=== PATIENT | female | born 1990 | race Caucasian/White ===

== ENCOUNTER → 2016-09-11 | Outpatient (CLI) | payer OTHER ==
[2016-09-11 18:52] LABS: FREE T4 1.13 NG/DL (0.76-1.46)
[2016-09-11 18:52] LABS: MEAN CORPUSCULAR HEMOGLOBIN 29.9 pg (27.0-33.0); MEAN CORPUSCULAR HGB CONC 32.7 g/dl (32.0-36.5); MEAN CORPUSCULAR VOLUME 91.4 fl (80.0-96.0); PLATELET COUNT, AUTOMATED 222 k/mm3 (150-450); RED CELL DISTRIBUTION WIDTH 12.3 % (11.5-14.5); WHITE BLOOD COUNT 6.8 K/mm3 (4.0-10.0)
[2016-09-11 18:53] LABS: DIFF SLIDE NUMBER 223
== END ==
LOC: M SMT 14:26
PROVIDERS: ATTEND Specialist
DX: Z34.82 Encounter for supervision of other normal pregnancy, second trimester (principal)

== ENCOUNTER → 2016-10-27 | Outpatient (REF) | payer OTHER ==
[2016-10-27 17:16] LABS: FREE T4 1.14 NG/DL (0.76-1.46)
== END ==
LOC: M LAB REF 10-26 15:58 → M LABDRWAD 15:58 → M LAB REF 15:58
PROVIDERS: ATTEND Advanced Practice Midwife
DX: Z34.83 Encounter for supervision of other normal pregnancy, third trimester (principal)

== ENCOUNTER → 2016-11-09 | Outpatient (REF) | payer OTHER | LOC: M LAB REF 17:30 | PROVIDERS: ATTEND Obstetrics & Gynecology | DX: Z34.83 Encounter for supervision of other normal pregnancy, third trimester (principal) ==

== ENCOUNTER 2016-12-03 19:26 | Inpatient (IN) | payer OTHER ==
[~2016-12-03] VITALS: Ht 157.5 cm; Wt 78.0 kg
[2016-12-03 19:39] VITALS: BP 136/100
[2016-12-03] MEDS ORDERED: LR 1,000 ML IV SCH (19:41)
[2016-12-03] MEDS ORDERED: LACTATED RINGER'S 1000 ML IV STA (19:41)
[2016-12-03 20:27] VITALS: BP 141/103
[2016-12-03] MEDS ORDERED: miSOPROStol 50 MCG 1/2 TAB (S0191) SL ONE (20:30)
[2016-12-03 20:55] LABS: MEAN CORPUSCULAR HEMOGLOBIN 30.2 pg (27.0-33.0); MEAN CORPUSCULAR HGB CONC 33.5 g/dl (32.0-36.5); MEAN CORPUSCULAR VOLUME 90.2 fl (80.0-96.0); RED CELL DISTRIBUTION WIDTH 13.8 % (11.5-14.5); WHITE BLOOD COUNT 11.9 K/mm3 (4.0-10.0)
[2016-12-03 20:56] VITALS: BP 158/101
[2016-12-03 21:25] LABS: ALBUMIN 2.8 GM/DL (3.2-5.2); ALBUMIN/GLOBULIN RATIO 0.72 (1.00-1.93); ALKALINE PHOSPHATASE 127 U/L (45-117); ALT/SGPT 24 U/L (12-78); ANION GAP 12 MEQ/L (8-16); AST/SGOT 29 U/L (15-37); BILIRUBIN,TOTAL 0.2 MG/DL (0.2-1.0); BLOOD UREA NITROGEN 10 MG/DL (7-18); CALCIUM LEVEL 8.9 MG/DL (8.5-10.1); CARBON DIOXIDE LEVEL 22 MEQ/L (21-32); CHLORIDE LEVEL 104 MEQ/L (98-107); CREATININE FOR GFR 0.68 MG/DL (0.55-1.02); GLOMERULAR FILTRATION RATE > 60.0 (>60); GLUCOSE, FASTING 96 MG/DL (70-105); POTASSIUM SERUM 4.1 MEQ/L (3.5-5.1); SODIUM LEVEL 138 MEQ/L (136-145); TOTAL PROTEIN 6.7 GM/DL (6.4-8.2); URIC ACID 6.6 MG/DL (2.6-6.0)
[2016-12-03 21:54] VITALS: BP 150/94
[2016-12-03] MEDS: ACETAMINOPHEN 500 MG TAB PO PRN (22:41)
[2016-12-03 22:43] VITALS: BP 123/77
[2016-12-03 23:58] VITALS: BP 117/72
[2016-12-04] VITALS (11 sets, daily range): BP systolic 115–160; BP diastolic 70–105
[2016-12-04] MEDS ORDERED: miSOPROStol 25 MCG 1/4 TAB (S0191) As Ordered ONE (02:11)
[2016-12-04] MEDS ORDERED: miSOPROStol 25 MCG 1/4 TAB (S0191) PV ONE (02:15)
[2016-12-04] MEDS: ACETAMINOPHEN 500 MG TAB PO PRN ×2 (04:52→10:08)
[2016-12-04] MEDS ORDERED: ACET50TA PO (06:44)
[2016-12-04] MEDS ORDERED: PRENTAB9 PO (06:44)
[2016-12-04] MEDS ORDERED: BUTORPHANOL 2 MG/ML INJ (J0595) IV ONE (07:45)
[2016-12-04] MEDS ORDERED: PROMETHAZINE INJ 25 MG/ML VIAL (J2550) IV ONE (07:45)
[2016-12-04] MEDS: miSOPROStol 50 MCG 1/2 TAB (S0191) PO SCH ×2 (08:01→12:00)
[2016-12-04] MEDS ORDERED: FENTANYL 2MCG/ML ROPIVACAINE 0.2% IN 0.9% NACL 200ML IVBAG As Ordered ONE (16:28)
[2016-12-04] MEDS ORDERED: OXYTOCIN DRIP 30 UNITS in APPROPRIATE DILUENT 1 EA IV SCH (16:30)
[2016-12-04 16:55] LABS: MEAN CORPUSCULAR HEMOGLOBIN 29.9 pg (27.0-33.0); MEAN CORPUSCULAR HGB CONC 33.3 g/dl (32.0-36.5); MEAN CORPUSCULAR VOLUME 89.8 fl (80.0-96.0); RED CELL DISTRIBUTION WIDTH 13.8 % (11.5-14.5)
[2016-12-04 20:33] LABS: CORD GAS ABE V -7.5; CORD GAS O2 SAT V 38.6 %; CORD GAS PCO2 V 47.4 mmHg; CORD GAS PH V 7.243 UNITS; CORD GAS PO2 V 19.6 mmHg; CORD GAS SBC V 17.2 MEQ/L; CORD GAS TCO2 V 21.4 MEQ/L
[2016-12-04 20:36] LABS: CORD GAS HCO3 A 21.3 MEQ/L; CORD GAS O2 SAT A < 15.0 %; CORD GAS PH A 7.095 UNITS; CORD GAS PO2 A 10.1 mmHg; CORD GAS TCO2 A 23.5 MEQ/L
[2016-12-04] MEDS ORDERED: DIBUCAINE 1% OINTMENT 30GM TOP PRN (20:45)
[2016-12-04] MEDS ORDERED: RHOGAM 300 MCG (1500 IU) INJ (J2790) IM SCH (20:45)
[2016-12-04] MEDS ORDERED: MEASLES,MUMPS,RUBELLA VACCINE INJ (MMR-II) (90707) SC SCH (20:45)
[2016-12-04] MEDS ORDERED: METHYLERGONOVINE MALEATE 0.2 MG TAB PO PRN (20:45)
[2016-12-04] MEDS ORDERED: LIDOCAINE 1% MDV INJ 50 ML VIAL INFIL ONE (20:45)
[2016-12-04] MEDS ORDERED: OXYTOCIN DRIP 30 UNITS in APPROPRIATE DILUENT 1 EA IV ONE (20:45)
[2016-12-04] MEDS ORDERED: ACETAMINOPHEN 500 MG TAB PO PRN (20:45)
[2016-12-04] MEDS ORDERED: ONDANSETRON 4MG/2ML VIAL (J2405) IV PRN (20:45)
[2016-12-04] MEDS ORDERED: DOCUSATE SODIUM 100 MG CAP PO PRN (20:45)
--- NOTE | 2016-12-04 20:47 | DN ---
DATE: 12/04/2016 PREDELIVERY DIAGNOSIS: 39 weeks, gestational hypertension. POSTDELIVERY DIAGNOSIS: Delivered. PROCEDURE: Spontaneous vaginal delivery. FIRE CHIEF DEPUTY: Dr. Amilcar Menard. ANESTHESIA: Epidural. ESTIMATED BLOOD LOSS: 300 ML. FINDINGS: 6 pound 14 ounce female , scores 8 and 9. DELIVERY SUMMARY: After a 36-minute second stage, the patient spontaneously delivered a 6 pound 14 ounce female , scores 8 and 9 under epidural anesthesia. There was no nuchal cord. The shoulders delivered spontaneously with ease. The infant was handed directly to the mother. Cord was doubly clamped and cut. Placenta delivered spontaneously and appeared to be intact. The patient received intravenous (IV) Pitocin immediately after delivery of the placenta. A second-degree perineal laceration was repaired under local anesthesia with 2-0 chromic in the usual fashion. Sponge, needle counts are correct.
[2016-12-04] MEDS: IBUPROFEN 800 MG TAB PO PRN (21:33)
[2016-12-05] MEDS: LEVOTHYROXINE 0.137 MG TAB (137MCG) PO SCH (05:34)
[2016-12-05] MEDS: IBUPROFEN 800 MG TAB PO PRN ×2 (05:34→14:34)
[2016-12-05 05:59] VITALS: BP 135/79
[2016-12-05] MEDS: PRENATAL VITAMIN TAB PO SCH (08:49)
[2016-12-05 17:50] VITALS: BP 167/85
[2016-12-05 18:42] VITALS: BP 143/96
[2016-12-06] MEDS: LEVOTHYROXINE 0.137 MG TAB (137MCG) PO SCH (06:00)
[2016-12-06] MEDS: IBUPROFEN 800 MG TAB PO PRN (06:05)
[2016-12-06 06:06] VITALS: BP 135/85
[2016-12-06] MEDS ORDERED: LEVO137T2 PO (08:37)
[2016-12-06] MEDS ORDERED: IBUP-1114 PO (08:39)
[2016-12-06] MEDS: PRENATAL VITAMIN TAB PO SCH (09:35)
== END 2016-12-06 11:00 | disposition home or self-care (01) | DRG 560 ==
LOC: M LDI 19:26 → M OBS 12-04 21:54
PROVIDERS: ADMIT Obstetrics & Gynecology; ATTEND Specialist
PROC: 3E0134Z Introduction of Serum, Toxoid and Vaccine into Subcutaneous Tissue, Percutaneous Approach (ICD-10-PCS; 2016-12-03)
PROC: 10E0XZZ Delivery of Products of Conception, External Approach (ICD-10-PCS; principal; 2016-12-04)
PROC: 0KQM0ZZ Repair Perineum Muscle, Open Approach (ICD-10-PCS; 2016-12-04)
DX: O13.4 Gestational [pregnancy-induced] hypertension without significant proteinuria, complicating childbirth (principal); Z3A.39 39 weeks gestation of pregnancy; O99.282 Endocrine, nutritional and metabolic diseases complicating pregnancy, second trimester; E03.9 Hypothyroidism, unspecified; O70.1 Second degree perineal laceration during delivery; Z37.0 Single live birth

== ENCOUNTER → 2017-03-11 | Outpatient (REF) | payer OTHER ==
[~2017-03-11] MED LIST: ACET50TA PO; IBUP-1114 PO; LEVO137T2 PO; PRENTAB9 PO
== END ==
LOC: M LAB REF 16:58
PROVIDERS: ATTEND Advanced Practice Midwife
DX: Z12.4 Encounter for screening for malignant neoplasm of cervix (principal)

== ENCOUNTER → 2017-03-13 | Outpatient (CLI) | payer OTHER ==
[2017-03-13 13:54] LABS: THYROXINE (T4) 11.7 UG/DL (4.5-12.0)
== END ==
LOC: M LAB 13:02
PROVIDERS: ATTEND Advanced Practice Midwife
DX: E03.9 Hypothyroidism, unspecified (principal)

== ENCOUNTER → 2017-08-13 | Outpatient (REF) | payer OTHER ==
[2017-08-13 16:23] LABS: HCG, SERUM QUANTITATIVE 288 MIU/ML
== END ==
LOC: M LAB REF 14:53
DX: Z02.1 Encounter for pre-employment examination (principal)

== ENCOUNTER → 2017-09-24 | Outpatient (CLI) | payer OTHER ==
[2017-09-24 18:30] LABS: BASO % 0.5 % (0.0-1.0); EOS # 0.5 10^3/uL (0.0-0.50); EOS % 5.8 % (0.0-3.0); HEMATOCRIT 39.7 % (36.0-47.0); IMMATURE GRANULOCYTE % 0.5 % (0-3.0); LYMPH # 2.1 10^3/uL (1.5-6.5); LYMPH % 23.4 % (24.0-44.0); MEAN CORPUSCULAR HEMOGLOBIN 29.1 pg (27.0-33.0); MEAN CORPUSCULAR HGB CONC 32.7 g/dl (32.0-36.5); MONO # 0.6 10^3/uL (0.0-0.8); MONO % 6.8 % (0.0-5.0); NEUTROPHILS # 5.5 10^3/uL (1.8-7.7); PLATELET COUNT, AUTOMATED 287 10^3/uL (150-450); RED BLOOD COUNT 4.46 10^6/uL (4.00-5.40); RED CELL DISTRIBUTION WIDTH 13.2 % (11.5-14.5); WHITE BLOOD COUNT 8.8 10^3/uL (4.0-10.0)
[2017-09-24 18:41] LABS: FREE T4 1.23 NG/DL (0.76-1.46)
[2017-09-24 20:50] LABS: CHLAMYDIA DNA AMPLIFICATION NEGATIVE (NEGATIVE); GC DNA AMPLIFICATION NEGATIVE (NEGATIVE)
[2017-09-27 10:33] LABS: RUBELLA IgG QUALITATIVE IMMUNE (IMMUNE)
[2017-09-27 10:39] LABS: HBsAg Prenatal NEGATIVE (NEGATIVE)
[2017-09-27 11:02] LABS: HIV 1&2 SCREEN CENTAUR NEGATIVE (NEGATIVE)
== END ==
LOC: M SMT 12:00
DX: Z34.81 Encounter for supervision of other normal pregnancy, first trimester (principal); Z3A.09 9 weeks gestation of pregnancy

== ENCOUNTER → 2017-10-18 | Outpatient (REF) | payer OTHER | LOC: M LAB REF 12:50 | DX: Z34.82 Encounter for supervision of other normal pregnancy, second trimester (principal) ==

== ENCOUNTER → 2017-11-12 | Outpatient (CLI) | payer OTHER | LOC: M RAD 17:04 | DX: Z34.82 Encounter for supervision of other normal pregnancy, second trimester (principal) | CPT/HCPCS: 76811 ==

== ENCOUNTER → 2017-12-07 | Outpatient (REF) | payer OTHER | LOC: M LAB REF 13:14 | DX: Z34.82 Encounter for supervision of other normal pregnancy, second trimester (principal) ==

== ENCOUNTER → 2018-01-13 | Outpatient (CLI) | payer OTHER ==
[2018-01-13 18:00] LABS: BASO % 0.3 % (0.0-1.0); EOS # 0.5 10^3/uL (0.0-0.50); EOS % 5.2 % (0.0-3.0); HEMATOCRIT 33.7 % (36.0-47.0); HEMOGLOBIN 10.8 g/dl (12.0-15.5); IMMATURE GRANULOCYTE % 1.5 % (0-3.0); LYMPH # 1.4 10^3/uL (1.5-6.5); LYMPH % 15.2 % (24.0-44.0); MEAN CORPUSCULAR HEMOGLOBIN 28.5 pg (27.0-33.0); MEAN CORPUSCULAR VOLUME 88.9 fl (80.0-96.0); MONO # 1.1 10^3/uL (0.0-0.8); MONO % 11.2 % (0.0-5.0); NEUTROPHILS # 6.3 10^3/uL (1.8-7.7); NEUTROPHILS % 66.6 % (36.0-66.0); PLATELET COUNT, AUTOMATED 220 10^3/uL (150-450); RED BLOOD COUNT 3.79 10^6/uL (4.00-5.40); RED CELL DISTRIBUTION WIDTH 12.4 % (11.5-14.5); WHITE BLOOD COUNT 9.5 10^3/uL (4.0-10.0)
[2018-01-13 18:28] LABS: FREE T4 1.27 NG/DL (0.76-1.46); THYROID STIMULATING HORMONE 0.047 uIU/ML (0.358-3.740)
[2018-01-13 18:53] LABS: GLUCOSE CHALLENGE TEST 1 HOUR 102 MG/DL (LESS THAN 140)
== END ==
LOC: M LAB 16:27
DX: Z36.89 Encounter for other specified antenatal screening (principal); Z3A.00 Weeks of gestation of pregnancy not specified
CPT/HCPCS: 82950

== ENCOUNTER → 2018-02-28 | Outpatient (CLI) | payer OTHER ==
[2018-02-28 13:53] LABS: FREE T4 1.08 NG/DL (0.76-1.46); THYROID STIMULATING HORMONE 0.616 uIU/ML (0.358-3.740)
== END ==
LOC: M SMT 10:59
DX: E03.9 Hypothyroidism, unspecified (principal)
CPT/HCPCS: 84443

== ENCOUNTER → 2018-03-29 | Outpatient (REF) | payer OTHER | LOC: M LAB REF 13:18 | DX: Z34.83 Encounter for supervision of other normal pregnancy, third trimester (principal) | CPT/HCPCS: 87081 ==

== ENCOUNTER → 2018-03-30 | Outpatient (CLI) | payer OTHER ==
[2018-03-30 16:45] LABS: TOTAL PROTEIN,RANDOM URINE 27.3 MG/DL (0.0-12.0)
[2018-03-30 16:46] LABS: ALT/SGPT 16 U/L (12-78); AST/SGOT 9 U/L (7-37); BILIRUBIN,TOTAL 0.2 MG/DL (0.2-1.0); CREATININE FOR GFR 0.61 MG/DL (0.55-1.30); GLOMERULAR FILTRATION RATE > 60.0 (>60); LDH LACTATE DEHYDROGENASE 176 U/L (84-246); URIC ACID 4.7 MG/DL (2.6-6.0)
== END ==
LOC: M LAB 15:48
DX: O13.3 Gestational [pregnancy-induced] hypertension without significant proteinuria, third trimester (principal)
CPT/HCPCS: 84460

== ENCOUNTER 2018-04-05 16:59 | Inpatient (IN) | payer OTHER ==
[2018-04-05 18:00] LABS: HEMATOCRIT 32.8 % (36.0-47.0); HEMOGLOBIN 10.4 g/dl (12.0-15.5); MEAN CORPUSCULAR HEMOGLOBIN 25.1 pg (27.0-33.0); MEAN CORPUSCULAR HGB CONC 31.7 g/dl (32.0-36.5); MEAN CORPUSCULAR VOLUME 79.2 fl (80.0-96.0); PLATELET COUNT, AUTOMATED 248 10^3/uL (150-450); RED BLOOD COUNT 4.14 10^6/uL (4.00-5.40); RED CELL DISTRIBUTION WIDTH 15.2 % (11.5-14.5); WHITE BLOOD COUNT 11.2 10^3/uL (4.0-10.0)
[2018-04-05] MEDS: miSOPROStol 50 MCG 1/2 TAB (S0191) SL ×2 (18:01→22:10)
[2018-04-06] MEDS: miSOPROStol 50 MCG 1/2 TAB (S0191) SL (02:03)
[2018-04-06] MEDS: LEVOTHYROXINE 137MCG TABLET (0.137MG) PO (06:00)
[2018-04-06] MEDS ORDERED: FENTANYL 2MCG/ML ROPIVACAINE 0.2% IN 0.9% NACL 200ML IVBAG As Ordered (07:07)
[2018-04-06] MEDS ORDERED: diphenhydrAMINE INJ 50MG/ML VIAL (J1200) IV (09:00)
[2018-04-06] MEDS ORDERED: ePHEDrine SULFATE 25 MG/5 ML(5MG/ML) SYRINGE IV (09:00)
[2018-04-06] MEDS ORDERED: EPIDURAL/PCA KEYS XX (09:00)
[2018-04-06] MEDS ORDERED: EPIDURAL COMMENT XX (09:00)
[2018-04-06] MEDS ORDERED: NALOXONE INJ 0.4 MG/1 ML VIAL (J2310) IV (09:00)
[2018-04-06] MEDS ORDERED: REFRIGERATOR IV KEYS XX (09:00)
[2018-04-06] MEDS: FENTANYL/ROPIVACAINE/NACL BAG 200 ML EPIDURAL (09:00)
[2018-04-06] MEDS: OXYTOCIN DRIP 30 UNITS in APPROPRIATE DILUENT 1 EA IV ×2 (09:43→11:45)
[2018-04-06] MEDS: ONDANSETRON 4MG/2ML VIAL (J2405) IV (09:48)
[2018-04-06] MEDS ORDERED: RHOGAM 300 MCG (1500 IU) INJ (J2790) IM (11:45)
[2018-04-06] MEDS ORDERED: DOCUSATE SODIUM 100 MG CAP PO (11:45)
[2018-04-06] MEDS ORDERED: METHYLERGONOVINE MALEATE 0.2 MG TAB PO (11:45)
[2018-04-06] MEDS ORDERED: DIBUCAINE 1% OINTMENT 30GM TOP (11:45)
[2018-04-06] MEDS ORDERED: MEASLES,MUMPS,RUBELLA VACCINE INJ (MMR-II) (90707) SC (11:45)
[2018-04-06] MEDS ORDERED: ACETAMINOPHEN 500 MG TAB PO (11:45)
[2018-04-06] MEDS: LIDOCAINE 1% MDV 20ML VIAL INFIL (13:00)
[2018-04-06] MEDS: IBUPROFEN 800 MG TAB PO (14:28)
[2018-04-07] MEDS: LEVOTHYROXINE 137MCG TABLET (0.137MG) PO (05:56)
[2018-04-07] MEDS: PRENATAL VITAMINS CHEWABLE TABLET PO (09:33)
== END 2018-04-07 17:40 | disposition home or self-care (01) | DRG 560 ==
LOC: M LDI 16:59 → M OBS 04-06 12:57
PROVIDERS: Specialist
PROC: 3E0P7GC Introduction of Other Therapeutic Substance into Female Reproductive, Via Natural or Artificial Opening (ICD-10-PCS; 2018-04-05)
PROC: 10E0XZZ Delivery of Products of Conception, External Approach (ICD-10-PCS; principal; 2018-04-06)
PROC: 0KQM0ZZ Repair Perineum Muscle, Open Approach (ICD-10-PCS; 2018-04-06)
DX: O13.4 Gestational [pregnancy-induced] hypertension without significant proteinuria, complicating childbirth (principal); Z3A.37 37 weeks gestation of pregnancy; O70.1 Second degree perineal laceration during delivery; Z37.0 Single live birth

== ENCOUNTER → 2019-01-10 | Outpatient (REF) | payer OTHER ==
[~2019-01-10] MED LIST changes: -ACET50TA PO; +MAPA500T2 PO; +XYZA5TAB4 PO
== END ==
LOC: M LAB REF 12:26
PROVIDERS: ATTEND Physician Assistant Medical
DX: N39.0 Urinary tract infection, site not specified (principal)

== ENCOUNTER → 2019-01-24 | Outpatient (REF) | payer OTHER ==
[2019-01-24 19:51] LABS: BASO % 0.5 % (0.0-1.0); EOS # 0.4 10^3/uL (0.0-0.50); EOS % 5.4 % (0.0-3.0); HEMATOCRIT 40.2 % (36.0-47.0); HEMOGLOBIN 12.6 g/dl (12.0-15.5); LYMPH # 1.9 10^3/uL (1.5-6.5); LYMPH % 25.7 % (24.0-44.0); MEAN CORPUSCULAR HEMOGLOBIN 27.8 pg (27.0-33.0); MEAN CORPUSCULAR HGB CONC 31.3 g/dl (32.0-36.5); MEAN CORPUSCULAR VOLUME 88.7 fl (80.0-96.0); MONO # 0.6 10^3/uL (0.0-0.8); MONO % 8.1 % (0.0-5.0); NEUTROPHILS # 4.5 10^3/uL (1.8-7.7); NEUTROPHILS % 59.9 % (36.0-66.0); PLATELET COUNT, AUTOMATED 280 10^3/uL (150-450); RED BLOOD COUNT 4.53 10^6/uL (4.00-5.40); WHITE BLOOD COUNT 7.4 10^3/uL (4.0-10.0)
[2019-01-24 20:04] LABS: FREE T4 1.31 NG/DL (0.76-1.46); THYROID STIMULATING HORMONE 0.514 uIU/ML (0.358-3.740)
== END ==
LOC: M LAB REF 19:08
PROVIDERS: ATTEND Physician Assistant
DX: E03.9 Hypothyroidism, unspecified (principal); E55.9 Vitamin D deficiency, unspecified

== ENCOUNTER → 2020-04-14 | Outpatient (CLI) | payer OTHER ==
[2020-04-14 12:53] LABS: BASO % 0.4 % (0.0-1.0); EOS # 0.3 10^3/uL (0.0-0.5); EOS % 4.4 % (0.0-3.0); HEMATOCRIT 39.2 % (36.0-47.0); HEMOGLOBIN 12.8 g/dl (12.0-15.5); LYMPH # 1.9 10^3/uL (1.5-5.0); LYMPH % 26.6 % (24.0-44.0); MEAN CORPUSCULAR HEMOGLOBIN 29.5 pg (27.0-33.0); MEAN CORPUSCULAR HGB CONC 32.7 g/dl (32.0-36.5); MEAN CORPUSCULAR VOLUME 90.3 fl (80.0-96.0); MONO # 0.5 10^3/uL (0.0-0.8); MONO % 7.5 % (0.0-5.0); NEUTROPHILS # 4.3 10^3/uL (1.5-8.5); NEUTROPHILS % 60.7 % (36.0-66.0); PLATELET COUNT, AUTOMATED 231 10^3/uL (150-450); RED BLOOD COUNT 4.34 10^6/uL (4.00-5.40)
[2020-04-14 13:22] LABS: ALBUMIN 3.4 GM/DL (3.2-5.2); ALT/SGPT 16 U/L (12-78); BILIRUBIN,TOTAL 0.5 MG/DL (0.2-1.0); BLOOD UREA NITROGEN 10 MG/DL (7-18); CALCIUM LEVEL 8.3 MG/DL (8.5-10.1); CARBON DIOXIDE LEVEL 25 MEQ/L (21-32); CHLORIDE LEVEL 109 MEQ/L (98-107); CREATININE FOR GFR 0.68 MG/DL (0.55-1.30); FREE T4 1.39 NG/DL (0.76-1.46); GLOMERULAR FILTRATION RATE > 60.0 (>60); GLUCOSE, FASTING 98 MG/DL (70-100); POTASSIUM SERUM 3.9 MEQ/L (3.5-5.1); SODIUM LEVEL 139 MEQ/L (136-145); THYROID STIMULATING HORMONE 0.837 uIU/ML (0.358-3.740); TOTAL PROTEIN 6.8 GM/DL (6.4-8.2)
[2020-04-15 10:42] LABS: TOTAL 25(OH) VITAMIN D 40.6 NG/ML (30.0-100.0)
== END ==
LOC: M LAB 12:11
PROVIDERS: ATTEND Physician Assistant
DX: E03.9 Hypothyroidism, unspecified (principal); E55.9 Vitamin D deficiency, unspecified; Z33.1 Pregnant state, incidental

== ENCOUNTER → 2020-05-09 | Outpatient (CLI) | payer OTHER ==
[2020-05-09 17:46] LABS: BASO % 0.4 % (0.0-1.0); EOS # 0.3 10^3/uL (0.0-0.5); EOS % 3.2 % (0.0-3.0); HEMATOCRIT 42.1 % (36.0-47.0); HEMOGLOBIN 13.7 g/dl (12.0-15.5); LYMPH # 2.3 10^3/uL (1.5-5.0); LYMPH % 21.2 % (24.0-44.0); MEAN CORPUSCULAR HEMOGLOBIN 29.6 pg (27.0-33.0); MEAN CORPUSCULAR HGB CONC 32.5 g/dl (32.0-36.5); MEAN CORPUSCULAR VOLUME 90.9 fl (80.0-96.0); MONO # 0.7 10^3/uL (0.0-0.8); MONO % 6.8 % (0.0-5.0); NEUTROPHILS # 7.3 10^3/uL (1.5-8.5); NEUTROPHILS % 67.8 % (36.0-66.0); PLATELET COUNT, AUTOMATED 303 10^3/uL (150-450); RED BLOOD COUNT 4.63 10^6/uL (4.00-5.40); WHITE BLOOD COUNT 10.8 10^3/uL (4.0-10.0)
[2020-05-09 18:17] LABS: ALBUMIN 3.4 GM/DL (3.2-5.2); ALT/SGPT 17 U/L (12-78); BILIRUBIN,DIRECT 0.1 MG/DL (0.0-0.2); BILIRUBIN,TOTAL 0.3 MG/DL (0.2-1.0); TOTAL PROTEIN 7.1 GM/DL (6.4-8.2)
[2020-05-09 18:22] LABS: TOTAL PROTEIN,RANDOM URINE 14.4 MG/DL (0.0-12.0)
[2020-05-09 19:07] LABS: HEPATITIS C VIRUS ABY INDEX 0.1 INDEX (<0.8)
[2020-05-09 19:08] LABS: HIV 1&2 SCREEN CENTAUR NEGATIVE (NEGATIVE)
== END ==
LOC: M PLALAB 15:38
PROVIDERS: ATTEND Advanced Practice Midwife
DX: Z34.81 Encounter for supervision of other normal pregnancy, first trimester (principal); Z3A.00 Weeks of gestation of pregnancy not specified

== ENCOUNTER → 2020-05-14 | Outpatient (CLI) | payer OTHER ==
--- NOTE | 2020-05-22 08:22 | REP ---
OBSTETRIC SONOGRAPHY: MULTIPLE GESTATION HISTORY: Supervision of . Twin gestation. COMPARISON SONOGRAPHY: None. FINDINGS: Transabdominal scanning confirms the presence of a living dichorionic diamniotic twin intrauterine . Free floating lie. Amniotic fluid is subjectively normal. heart rate for fetus A is recorded at 169 beats per minute and for fetus B at 172 beats per minute. Closed cervical length is 3.1 cm viewed transabdominally. The crown-rump length of the embryonic pole for fetus A is 3.1 cm and that for fetus B 3.2 cm. This corresponds with a gestational age estimate of 10 weeks 1 day. No gross anomaly. IMPRESSION: Viable twin intrauterine gestation at 9 weeks 4 days by last menstrual period (LMP), 10 weeks 1 day by crown-rump length. No complications identified. Anterior placenta. MTDD
== END ==
LOC: M WHC 14:58
PROVIDERS: ATTEND Advanced Practice Midwife
DX: O30.049 Twin pregnancy, dichorionic/diamniotic, unspecified trimester (principal)

== ENCOUNTER → 2020-05-21 | Outpatient (CLI) | payer OTHER | LOC: M PLALAB 15:14 | PROVIDERS: ATTEND Advanced Practice Midwife | DX: O30.001 Twin pregnancy, unspecified number of placenta and unspecified number of amniotic sacs, first trimester (principal) ==

== ENCOUNTER → 2020-07-10 | Outpatient (CLI) | payer OTHER ==
--- NOTE | 2020-07-10 17:05 | REP ---
INDICATION: ANATOMY - TWINS Twin gestation. COMPARISON: 05/14/2020 TECHNIQUE: Transabdominal obstetrical ultrasound with color Doppler evaluation. FINDINGS: Examination demonstrates diamniotic dichorionic twin gestation. Cervix measures 4.0 cm cm in length and appears closed. Concordant growth is noted. Gestational age by LMP at 17 weeks 5 days with estimated date of delivery 12/13/2020. TWIN A: Twin A identified in variable presentation. Placenta is noted anterior and grade 1 without evidence for placenta previa or abruption. motion is appreciated. Amniotic fluid volume is normal. FHR equals 146 beats per minute. BPD: 4.2 cm at 18 weeks 5 days. HC: 14.7 cm at 17 weeks 6 days AC: 12.4 cm at 18 weeks 0 days. FL: 2.7 cm at 18 weeks 3 days. HL: 2.5 cm at 17 weeks 5 days HC/AC ratio: 1.19 Gestational age by current measurements: 18 weeks 1 day. Estimated weight 227 grams (74th percentile). Anatomical assessment demonstrates normal cranium, cerebellum, ventricles, choroid plexus, cisterna magna, facial features, four-chamber heart/ventricular outflow tracts, diaphragm, stomach, abdominal wall, kidneys/bladder, spine, extremities and three-vessel cord. TWIN B: Twin B identified in variable presentation. Placenta is noted anterior and grade 1 without evidence for placenta previa or abruption. motion is appreciated. Amniotic fluid volume is normal. FHR equals 149 beats per minute. BPD: 4.2 cm at 18 weeks 4 days HC: 15.6 cm at 18 weeks 4 days AC: 13.1 cm at 18 weeks 4 days FL: 2.7 cm at 18 weeks 1 day HL: 2.6 cm at 18 weeks 2 days HC/AC ratio: 1.19 Gestational age by current measurements: 18 weeks 3 days. Estimated weight 239 grams (86th percentile). Anatomical assessment demonstrates normal cranium, cerebellum, ventricles, choroid plexus, cisterna magna, facial features, four-chamber heart/ventricular outflow tracts, diaphragm, stomach, abdominal wall, kidneys/bladder, spine, extremities and three-vessel cord. Incidental echogenic focus within the cardiac ventricle suggesting prominent chordae tendineae. IMPRESSION: 1. Diamniotic dichorionic twin gestation demonstrating appropriate concordant growth. 2. Incidental echogenic focus within fetus B cardiac ventricle suggesting prominent chordae tendinae 8. Remainder of the anatomical assessment is normal for both twins. <Electronically signed by Enrique Washington > 07/10/20 [id number]
== END ==
LOC: M WHC 12:41
PROVIDERS: ATTEND Specialist
DX: O30.042 Twin pregnancy, dichorionic/diamniotic, second trimester (principal); Z3A.17 17 weeks gestation of pregnancy

== ENCOUNTER → 2020-08-05 | Outpatient (CLI) | payer OTHER ==
--- NOTE | 2020-08-05 17:01 | REP ---
INDICATION: GROWTH Twin gestation. COMPARISON: 07/10/2020 TECHNIQUE: Transabdominal obstetrical ultrasound with color Doppler evaluation. FINDINGS: Examination demonstrates diamniotic dichorionic twin gestation. Cervix measures 3.6 cm in length and appears closed. Gestational age by LMP at 21 weeks 3 days with estimated date of delivery 12/13/2020. TWIN A: Twin A identified in cephalic presentation along the maternal right side. Placenta is noted anterior and grade grade 1 without evidence for placenta previa or abruption. motion is appreciated. Amniotic fluid volume is subjectively normal. FHR equals 142 beats per minute. Gestational age by current measurements: 21 weeks 5 days. Estimated weight by current measurements 446 grams (31st percentile). Limited anatomical assessment without obvious abnormality. TWIN B: Twin B identified in cephalic presentation along the maternal left side. Placenta is noted anterior and grade grade 1 without evidence for placenta previa or abruption. motion is appreciated. Amniotic fluid volume is subjectively normal. FHR equals 150 beats per minute. Gestational age by current measurements: 22 weeks 0 days. Estimated weight by current measurements 478 grams (50th percentile). Limited anatomical assessment demonstrates echogenic focus within the cardiac ventricle suggesting prominent chordae tendineae. IMPRESSION: Diamniotic dichorionic twin gestation demonstrating relatively appropriate interval growth as described above. Twin B demonstrates presumed prominent chordae tendineae. <Electronically signed by Enrique Washington > 08/05/20 [id number]
== END ==
LOC: M WHC 15:28
PROVIDERS: ATTEND Obstetrics & Gynecology
DX: O30.042 Twin pregnancy, dichorionic/diamniotic, second trimester (principal); Z3A.22 22 weeks gestation of pregnancy

== ENCOUNTER → 2020-09-02 | Outpatient (REF) | payer OTHER ==
[2020-09-02 18:46] LABS: HEMATOCRIT 31.4 % (36.0-47.0); HEMOGLOBIN 9.6 g/dl (12.0-15.5); MEAN CORPUSCULAR HEMOGLOBIN 27.5 pg (27.0-33.0); MEAN CORPUSCULAR HGB CONC 30.6 g/dl (32.0-36.5); PLATELET COUNT, AUTOMATED 236 10^3/uL (150-450); RED BLOOD COUNT 3.49 10^6/uL (4.00-5.40); WHITE BLOOD COUNT 10.7 10^3/uL (4.0-10.0)
[2020-09-02 18:53] LABS: FREE T4 1.07 NG/DL (0.76-1.46); THYROID STIMULATING HORMONE 0.563 uIU/ML (0.358-3.740)
== END ==
LOC: M PLALAB 13:46
PROVIDERS: ATTEND Specialist
DX: O30.042 Twin pregnancy, dichorionic/diamniotic, second trimester (principal)

== ENCOUNTER → 2020-09-02 | Outpatient (CLI) | payer OTHER ==
--- NOTE | 2020-09-03 10:39 | REP ---
INDICATION: GROWTH/TWINS Twin gestation. COMPARISON: None. FINDINGS: Examination demonstrates diamniotic dichorionic twin gestation. Cervix measures 3.1 cm in length and appears closed. Gestational age by LMP at 25 weeks 3 days with estimated date of delivery 12/13/2020. TWIN A: Twin A identified in cephalic presentation along the maternal right side. Placenta is noted anterior and grade 1 without evidence for placenta previa or abruption. motion is appreciated. Amniotic fluid volume is normal and the deepest pocket measures 4.8 cm. FHR equals 150 beats per minute. Estimated weight by current biometric measurements 808 g (41st percentile by LMP) Limited anatomical assessment without obvious abnormality. TWIN B: Twin B identified in breech presentation along the maternal left side. Placenta is noted anterior and grade 1 without evidence for placenta previa or abruption. motion is appreciated. Amniotic fluid volume is normal and the deepest pocket measures 6.0 cm. FHR equals 158 beats per minute. Estimated weight by current biometric measurements 983 g (greater than 97th percentile by LMP) Limited anatomical assessment without obvious abnormality. IMPRESSION: Diamniotic dichorionic twin gestation demonstrating discordant growth as described above. No gross abnormalities are identified. <Electronically signed by Enrique Washington > 09/03/20 1846
== END ==
LOC: M WHC 15:35
PROVIDERS: ATTEND Specialist
DX: O30.042 Twin pregnancy, dichorionic/diamniotic, second trimester (principal); Z3A.25 25 weeks gestation of pregnancy; O32.1XX2 Maternal care for breech presentation, fetus 2

== ENCOUNTER → 2020-09-30 | Outpatient (CLI) | payer OTHER ==
--- NOTE | 2020-10-01 10:08 | REP ---
INDICATION: TWIN GESTATION,ANATOMY. growth. COMPARISON: Comparison study 02 September 2020.. TECHNIQUE: Transabdominal obstetric sonography. FINDINGS: Scanning through the gravid uterus demonstrates a viable twin intrauterine gestation. Closed cervical length is 2.2 cm view transabdominally. Fetus A is cephalic in lie anterior grade 1 placenta. heart rate 143 beats per minute. Three-vessel cord. Biometry chart fetus A: BPD 7.5 cm, 30 weeks 1 day Head circumference 27.5 cm, 30 weeks 0 days Abdominal circumference 24.4 cm, 28 weeks 4 days Femur length 5.2 cm, 27 weeks 6 days Humeral length 4.6 cm, 27 weeks 2 days HC AC ratio normal 1.13 Cephalic index normal 0.76 Estimated weight 1251 g, 2 lb 12 oz, 14th percentile for 29 weeks 3 days Fetus B is also cephalic. Placenta anterior grade 1 without evidence of previa. Three-vessel cord. heart rate 143 beats per minute. Biometry chart fetus B: BPD 7.5 cm, 30 weeks 1 day Head circumference 27.8 cm, 30 weeks 3 days Abdominal circumference 28.5 cm, 32 weeks 4 days Femur length 5.5 cm, 29 weeks 1 day Humeral length 5.0 cm, 29 weeks 0 days HC AC ratio 0.98 (0.9821.17) Cephalic index normal 0.75 Estimated weight 1702 g, 3 lb 12 oz, greater than 97th percentile for 29 weeks 3 days. IMPRESSION: Viable twin intrauterine gestation with some disparity in weight between the 2 fetuses, fetus A 14th percentile for 29 weeks 3 days and fetus B greater than 97th percentile for 29 weeks 3 days. There was some disparity on the weights for the prior study. Gestational age estimate based on prior sonography is 29 weeks 3 days. ADAMS by prior sonography 13 December 2020. <Electronically signed by Kaiden Hagen > 10/01/20 [id number]
== END ==
LOC: M WHC 15:08
PROVIDERS: ATTEND Specialist
DX: O30.043 Twin pregnancy, dichorionic/diamniotic, third trimester (principal); Z3A.30 30 weeks gestation of pregnancy

== ENCOUNTER 2020-10-08 09:16 | Outpatient (CLI) | payer OTHER ==
[~2020-10-08] VITALS: Ht 158.8 cm; Wt 84.1 kg
[2020-10-08] MEDS ORDERED: IRON SUCROSE 500 MG in NS 250 ML OVER 4 HRS IV ONE (09:30)
[2020-10-08 10:04] VITALS: BP 129/85
[2020-10-08 10:57] VITALS: BP 121/74
[2020-10-08 12:13] VITALS: BP 119/77
[2020-10-08 13:40] VITALS: BP 109/71
== END 2020-10-08 13:40 | disposition home or self-care (01) ==
LOC: M INFU 09:16
PROVIDERS: ATTEND Specialist
DX: D64.9 Anemia, unspecified (principal)
CPT/HCPCS: 96365; 96366; J1756

== ENCOUNTER → 2020-10-10 | Outpatient (CLI) | payer OTHER ==
[~2020-10-10] MED LIST changes: +PODI1CAP PO
== END ==
LOC: M WHC 15:32
PROVIDERS: ATTEND Specialist
DX: O30.043 Twin pregnancy, dichorionic/diamniotic, third trimester (principal)

== ENCOUNTER → 2020-10-14 | Outpatient (CLI) | payer OTHER ==
[~2020-10-14] MED LIST changes: +COLA100C5 PO; +FERR325T16 PO
--- NOTE | 2020-10-14 17:47 | REP ---
INDICATION: BPP TWINS COMPARISON: 09/30/2020 TECHNIQUE: Transabdominal obstetrical ultrasound with color Doppler evaluation. FINDINGS: Examination demonstrates advanced dichorionic diamniotic twin live intrauterine . Gestational age by known ADAMS of 12/13/2020 is 31 weeks 3 days. Cervix measured 1.9 cm in length. TWIN A: Cephalic presentation towards right side of the uterus. heart rate equals 144 beats per minute. Placenta noted anteriorly and grade 2. Amniotic fluid volume deepest pocket: 5.8 cm Biophysical profile score: 8/8 Umbilical artery 1 SD ratio: 2.24 (1.87-3.93) Umbilical artery 2 SD ratio: 2.36 TWIN B: Transverse presentation towards left side of the uterus. heart rate equals 167 beats per minute. Placenta noted anteriorly and grade 2. Amniotic fluid volume deepest pocket: 5.2 cm Biophysical profile score: 8/8 Umbilical artery 1 SD ratio: 2.97 Umbilical artery 2 SD ratio: 2.39 IMPRESSION: Twin gestation demonstrating normal biophysical profile score and amniotic fluid levels. Shortened cervix measuring 1.9 cm in length. <Electronically signed by Enrique Washington > 10/14/20 0080
== END ==
LOC: M WHC 15:40
PROVIDERS: ATTEND Specialist
DX: O30.043 Twin pregnancy, dichorionic/diamniotic, third trimester (principal); Z3A.31 31 weeks gestation of pregnancy

== ENCOUNTER 2020-10-15 08:59 | Outpatient (CLI) | payer OTHER ==
[~2020-10-15] VITALS: Ht 157.5 cm; Wt 86.0 kg
[~2020-10-15 08:59] MED LIST changes: -COLA100C5 PO; -FERR325T16 PO; -PODI1CAP PO
[2020-10-15] MEDS ORDERED: BETAMETHASONE SOLUSPAN 6MG/ML 5ML VIAL (J0702 PER 3MG) IM SCH (09:15)
[2020-10-15] MEDS ORDERED: PODI1CAP PO (09:22)
[2020-10-15 09:37] VITALS: BP 169/93
[2020-10-15 10:04] VITALS: BP 128/81
[2020-10-15 10:09] VITALS: BP 124/81
--- NOTE | 2020-10-15 21:59 | IPNPDOC ---
Text Note Date of Service The patient was seen on 10/15/20. NOTE Triage Note Cristina is a 30yo with di-di twins at 31w4d presenting to triage only for IM 12mg betamethasone injection after being seen by Dr. Menard just prior in clinic. is complicated by discordant growth of twins (A 14% and B >97%) for which she receives BPPs. She had BPP for the twins done yesterday which was 8/8 for both twins, but cervical length was done at that time which was 1.9cm. Dr. Menard did an SCE in clinic today which was /-2, soft and this raises suspicion that patient may have pre-term delivery at some point. She has no ctx currently. Feels good FM. No vb or LOF. She received her betamethasone injection without incident Plan is for her to present to L&D tomorrow for 2nd injection Otherwise continue routine care, BPPs weekly Return precautions discussed Lina Peralta MD VS,Beau, I+O VS, Beau, I+O Vital Signs Date Time Temp Pulse Resp B/P (MAP) Pulse Ox O2 Delivery O2 Flow Rate FiO2 10/15/20 10:09 82 18 124/81 (95) 10/15/20 09:37 98.8 Lina Peralta MD Oct 15, 2020 21:59
[2020-10-16] MEDS ORDERED: FERR325T16 PO (10:44)
[2020-10-16] MEDS ORDERED: COLA100C5 PO (10:46)
== END 2020-10-15 10:20 | disposition home or self-care (01) ==
LOC: M LDO 08:59
PROVIDERS: ATTEND Obstetrics & Gynecology
DX: O30.043 Twin pregnancy, dichorionic/diamniotic, third trimester (principal)
CPT/HCPCS: 96372; G0378; J0702

== ENCOUNTER 2020-10-16 02:35 | Outpatient (CLI) | payer OTHER ==
[2020-10-16] VITALS (7 sets, daily range): BP systolic 107–158; BP diastolic 58–101
[~2020-10-16] VITALS: Ht 157.5 cm; Wt 86.0 kg
[~2020-10-16 02:35] MED LIST changes: +PODI1CAP PO
[2020-10-16] MEDS ORDERED: LR 1,000 ML IV SCH (03:23)
[2020-10-16] MEDS ORDERED: LACTATED RINGER'S 1000 ML IV STA (03:23)
[2020-10-16] MEDS ORDERED: CALCIUM CARBONATE 500 MG CHEW U/D PO ONE (05:40)
[2020-10-16] MEDS ORDERED: ACETAMINOPHEN 500 MG TAB PO PRN (07:30)
--- NOTE | 2020-10-16 07:37 | IPNPDOC ---
Text Note Date of Service The patient was seen on 10/16/20. NOTE Triage Note Cristina is a 30yo with di-di twins at 31w5d who presented overnight for regular ctx that were not painful but persistent and seemed to get closer in timing. No LOF. No VB. Good movement x2. She was seen in triage yesterday morning for IM 12mg betamethasone injection after being seen by Dr. Menard just prior in clinic. is complicated by discordant growth of twins (A 14% and B >97%) for which she receives BPPs. She had BPP for the twins done on 10/14 which was 8/8 for both twins, but cervical length was done at that time which was 1.9cm. Dr. Menard did an SCE in clinic yesterday which was /-2, soft an d this raises suspicion that patient may have pre-term delivery at some point. When she presented to triage last night, SCE performed which was unchanged (/-2). She was gerardo every 5 min or so. But after IVF bolus of 1L LR, they spaced way out and patient barely felt them. Reassuring FHRT on presentation. Patient is due for 2nd betamethasone injection at 0945, so she was kept here to rest. Notably, she has had a few mild range bp's (no sx of pre-E). I have ordered pre-E lab workup to be done while she waits until beta is due. Regular diet Tylenol prn discomfort Lina Peralta MD VS,Beau, I+O VSBeau, I+O Vital Signs Date Time Temp Pulse Resp B/P (MAP) Pulse Ox O2 Delivery O2 Flow Rate FiO2 10/16/20 05:45 98.6 114 20 154/81 (105) 10/16/20 02:58 96 Room Air I&O- Last 24 Hours up to 6 AM 10/16/20 06:00 Intake Total 1000 ml Balance 1000 ml Lina Peralta MD Oct 16, 2020 07:37
[2020-10-16 07:58] LABS: HEMATOCRIT 30.5 % (36.0-47.0); HEMOGLOBIN 9.5 g/dl (12.0-15.5); MEAN CORPUSCULAR HEMOGLOBIN 26.1 pg (27.0-33.0); MEAN CORPUSCULAR HGB CONC 31.1 g/dl (32.0-36.5); MEAN CORPUSCULAR VOLUME 83.8 fl (80.0-96.0); PLATELET COUNT, AUTOMATED 197 10^3/uL (150-450); RED BLOOD COUNT 3.64 10^6/uL (4.00-5.40); WHITE BLOOD COUNT 13.7 10^3/uL (4.0-10.0)
[2020-10-16 08:48] LABS: ALBUMIN 2.6 GM/DL (3.2-5.2); ALT/SGPT 16 U/L (12-78); BILIRUBIN,TOTAL 0.2 MG/DL (0.2-1.0); BLOOD UREA NITROGEN 8 MG/DL (7-18); CALCIUM LEVEL 9.9 MG/DL (8.5-10.1); CARBON DIOXIDE LEVEL 20 MEQ/L (21-32); CHLORIDE LEVEL 112 MEQ/L (98-107); CREATININE FOR GFR 0.54 MG/DL (0.55-1.30); GLOMERULAR FILTRATION RATE > 60.0 (>60); GLUCOSE, FASTING 103 MG/DL (70-100); POTASSIUM SERUM 4.1 MEQ/L (3.5-5.1); SODIUM LEVEL 141 MEQ/L (136-145); TOTAL PROTEIN 5.7 GM/DL (6.4-8.2)
[2020-10-16 09:18] LABS: CREATININE,RANDOM URINE 43.8 MG/DL
[2020-10-16] MEDS ORDERED: BETAMETHASONE SOLUSPAN 6MG/ML 5ML VIAL (J0702 PER 3MG) IM ONE (09:20)
[2020-10-16] MEDS ORDERED: FERR325T16 PO (10:44)
[2020-10-16] MEDS ORDERED: COLA100C5 PO (10:46)
--- NOTE | 2020-10-16 10:50 | IPNPDOC ---
Text Note Date of Service The patient was seen on 10/16/20. NOTE Subjective: Reports she has only noticed random contractions. States they don't feel uncomfortable, they feel more like tightening when it happens. Reports active movement. Denies vaginal bleeding or leaking of fluid. She reports she had an iron transfusion last week. She received her 2nd dose of betamethasone today. Denies any preeclamptic symptoms. Objective: FHR: Twin A 130, moderate variability, positive accelerations, no decelerations. Twin B: 135, moderate variability, positive accelerations, no decelerations. Contractions: 1 noted over the last 20+ minutes. Abdomen soft to palpation. Assessment: Di/di twin at 31.5 weeks gestation, shortened cervical length, betamethasone complete, GHTN, anemia Plan: Script sent for ferrous gluconate and stool softener. Patient had iron transfusion last week but encouraged continued use. Reports she stopped work last week and put her children in day care to help decrease her risk of labor. She is scheduled to be seen by Dr. Menard on Wednesday. Reviewed elevated BP's while present in hospital that have been labile. Reviewed increased risk of GHTN, preeclampsia, GDM, and anemia with twin . Reviewed access to care, labor signs, kick counts, preeclamptic symptoms, and danger signs to report. Patient discharged to home. VS,Bogdanbone, I+O VS, Fishbone, I+O Laboratory Tests 10/16/20 07:45 Item Value Date Time Urine Random Creatinine 43.8 MG/DL 10/16/20 0839 Urine Random Total Protein 10.0 MG/DL 10/16/20 0839 Vital Signs Date Time Temp Pulse Resp B/P (MAP) Pulse Ox O2 Delivery O2 Flow Rate FiO2 10/16/20 10:05 104 18 107/58 (74) 10/16/20 08:02 98.5 10/16/20 02:58 96 Room Air I&O- Last 24 Hours up to 6 AM 10/16/20 06:00 Intake Total 1000 ml Balance 1000 ml MATTHEW FERRERA CNM Oct 16, 2020 10:50
== END 2020-10-16 11:02 | disposition home or self-care (01) ==
LOC: M LDO 02:35
PROVIDERS: ATTEND Obstetrics & Gynecology
DX: O30.043 Twin pregnancy, dichorionic/diamniotic, third trimester (principal); Z3A.31 31 weeks gestation of pregnancy
CPT/HCPCS: 36415; 59025; 80053; 82570; 84156; 85027; 96372; G0378; G0463; J0702

== ENCOUNTER → 2020-10-21 | Outpatient (CLI) | payer OTHER ==
[~2020-10-21] MED LIST changes: +COLA100C5 PO; +FERR325T16 PO
--- NOTE | 2020-10-21 18:23 | REP ---
INDICATION: BPP/TWIN GESTATION COMPARISON: 10/14/2020 TECHNIQUE: Transabdominal obstetrical ultrasound with color Doppler evaluation. FINDINGS: Examination demonstrates dichorionic diamniotic twin live intrauterine . Gestational age by LMP 32 weeks 3 days with estimated date of delivery 12/13/2020. Cervix measures 1.9 cm . TWIN A: Transverse (head to maternal left) . heart rate equals 142 beats per minute. Placenta noted anterior and grade 1. Amniotic fluid volume deepest pocket: 7.6 cm Estimated weight by biometric measurements 1880 g 29th percentile Biophysical profile score: 8/8. TWIN B: Transverse (head to maternal left). heart rate equals 152 beats per minute. Placenta noted anterior and grade 1. Amniotic fluid volume deepest pocket: 6.3 cm Estimated weight by biometric measurements 1966 g 40th percentile Biophysical profile score: 8/8 IMPRESSION: Twin gestation with normal amniotic fluid volumes and biophysical profile scores. Cervix measures 1.9 cm in length. <Electronically signed by Enrique Washington > 10/21/20 6025
== END ==
LOC: M WHC 15:35
PROVIDERS: ATTEND Specialist
DX: O30.043 Twin pregnancy, dichorionic/diamniotic, third trimester (principal); Z3A.32 32 weeks gestation of pregnancy

== ENCOUNTER → 2020-10-28 | Outpatient (CLI) | payer OTHER ==
--- NOTE | 2020-10-28 10:19 | REP ---
INDICATION: TWIN GESTATION,GROWTH,BPP COMPARISON: 10/21/2020 TECHNIQUE: Transabdominal obstetrical ultrasound with color Doppler evaluation. FINDINGS: Examination demonstrates dichorionic diamniotic twin live intrauterine . Gestational age by LMP and 1st ultrasound 33 weeks 3 days with estimated date of delivery 12/13/2020. Cervix measures 2.0 cm and appears closed. TWIN A: Cephalic presentation heart rate equals 161 beats per minute. Placenta noted anteriorly and grade 1. Amniotic fluid volume deepest pocket: 5.8 cm Biophysical profile score: 8/8 Umbilical artery SD ratio: 2.26 (1.76-3.73) Umbilical artery 2 SD ratio: 2.02 TWIN B: Cephalic presentation heart rate equals 150 beats per minute. Placenta noted anteriorly and grade 1. Amniotic fluid volume deepest pocket: 4.2 cm Biophysical profile score: 8/8 Umbilical artery 1 SD ratio: 3.08 Umbilical artery 2 SD ratio: 3.32 IMPRESSION: Twin gestation demonstrating appropriate amniotic fluid volume and biophysical profile scores. <Electronically signed by Enrique Washington > 10/28/20 1016
== END ==
LOC: M WHC 09:09
PROVIDERS: ATTEND Specialist
DX: Z36.2 Encounter for other antenatal screening follow-up (principal); O30.042 Twin pregnancy, dichorionic/diamniotic, second trimester; Z3A.33 33 weeks gestation of pregnancy

== ENCOUNTER → 2020-11-04 | Outpatient (CLI) | payer OTHER ==
--- NOTE | 2020-11-04 13:12 | REP ---
INDICATION: TWIN GESTATION,BPP. COMPARISON: 10/28/2020. TECHNIQUE: There are multiple sonographic images including Doppler ultrasound of each twin. FINDINGS: There is a known dichorionic diamniotic twin gestation. Twin is A is in a cephalic presentation on the right and twin B is in a cephalic presentation on the left anterior to twin A. Gestational age by the 1st ultrasound is 34 weeks 3 days with an ADAMS of 12/13/2020. Twin A: The placenta is anterior with grade 1 maturity. There is no previa. heart rate is 146 beats per minute. Amniotic fluid volume subjectively is normal. biophysical profile: breathing 2 tone 2 movement 2 AF the 2 Total: 8/8 Umbilical artery Doppler Umbilical artery 1: PSV 32.6 centimeters/second EDV 16.6 centimeters/second S/D 1.96 (1.71-3.64) RI: 0.49 (0.47-0.73. Umbilical artery 2: PSV 35.1 centimeters/second EDV 17.5 centimeters/second S/D 2.01 RA 0.50 Twin B: The placenta is anterior with grade 1 maturity. There is no previa. heart rate is 138 beats per minute. Amniotic fluid volume subjectively is normal. biophysical profile: breathing 2 tone 2 movement 2 AFB 2 Total 8/8 Umbilical artery Doppler Umbilical artery 1: PSV 39.4 centimeters/second EDV 13.6 centimeters/second SD 2.9 RA 0.65 Umbilical artery 2: PSV 58.4 centimeters/second EDV 20.0 centimeters/second SD 2.92 RI 0.66. ASSESSMENT: P IMPRESSION: Twin gestation with biophysical profile of each twin as described above. <Electronically signed by James Roth > 11/04/20 0514
== END ==
LOC: M WHC 09:16
PROVIDERS: ATTEND Specialist
DX: O30.043 Twin pregnancy, dichorionic/diamniotic, third trimester (principal)

== ENCOUNTER → 2020-11-05 | Outpatient (REF) | payer OTHER | LOC: M SFHCWAGY 14:11 | PROVIDERS: ATTEND Specialist | DX: O30.043 Twin pregnancy, dichorionic/diamniotic, third trimester (principal) ==

== ENCOUNTER → 2020-11-08 | Outpatient (CLI) | payer OTHER ==
[~2020-11-08] MED LIST changes: +ASPI81CH33 PO; +TUMS500C PO
--- NOTE | 2020-11-08 15:22 | REP ---
INDICATION: TWIN GESTATION,GROWTH,BPP. COMPARISON: 10/28/2020. TECHNIQUE: Multiple sonographic images of the gravid uterus. FINDINGS: Twin a: The fetus is in a cephalic presentation on the maternal right. The placenta is anterior with grade 1 maturity. There is no previa. The is dichorionic/diamniotic. There is a three-vessel umbilical cord. heart rate is 147 beats per minute. Subjectively amniotic fluid volume is normal. MPV: 6.0 cm. Biophysical profile: Breathing 2 Tone 2 Movement 2 AFB 2 Total 8/8 Umbilical artery Doppler ultrasound: Umbilical artery 1: PSV 49.7 centimeters/second EDV 19.5 centimeters/second S/D 2.55 (1.58-3.59) RA 0.61 (0.46-0.72). Umbilical artery 2: PSV 55.5 centimeters/second EDV 20.5 centimeters/second S/D 2.71 RI 0.63 Twin B: The fetus is in a cephalic presentation anterior to the left of fetus a The placenta is anterior with grade 1 maturity. There is no previa. There is a three-vessel cord. heart rate is 147 beats per minute. Subjectively the amniotic fluid volume is normal. M PV 4.9 cm. Biophysical profile: Breathing 2 Tone 2 Movement 2 AFB 2 Total 8/8. Umbilical artery Doppler ultrasound: Umbilical artery 1 PSV 48.2 centimeters/second EDV 17.0 centimeters/second S/D 2.84 RI 0.65 Umbilical artery 2: PSV 35.5 centimeters/second EDV 15.6 centimeters/second S/D 2.28 RI 0.56. IMPRESSION: biophysical profile as above. <Electronically signed by James Roth > 11/08/20 [id number]
== END ==
LOC: M WHC 09:00
PROVIDERS: ATTEND Specialist
DX: O30.043 Twin pregnancy, dichorionic/diamniotic, third trimester (principal); Z3A.00 Weeks of gestation of pregnancy not specified

== ENCOUNTER 2020-11-11 09:38 | Outpatient (CLI) | payer OTHER ==
[~2020-11-11] VITALS: Ht 157.5 cm; Wt 90.1 kg
[~2020-11-11 09:38] MED LIST changes: -ASPI81CH33 PO; -TUMS500C PO
[2020-11-11 10:02] VITALS: BP 138/85
[2020-11-11] MEDS ORDERED: ASPI81CH33 PO (10:34)
[2020-11-11] MEDS ORDERED: TUMS500C PO (10:35)
[2020-11-11 10:44] LABS: HEMATOCRIT 36.5 % (36.0-47.0); HEMOGLOBIN 11.6 g/dl (12.0-15.5); MEAN CORPUSCULAR HEMOGLOBIN 27.5 pg (27.0-33.0); MEAN CORPUSCULAR HGB CONC 31.8 g/dl (32.0-36.5); MEAN CORPUSCULAR VOLUME 86.5 fl (80.0-96.0); PLATELET COUNT, AUTOMATED 155 10^3/uL (150-450); RED BLOOD COUNT 4.22 10^6/uL (4.00-5.40); WHITE BLOOD COUNT 9.8 10^3/uL (4.0-10.0)
[2020-11-11 10:51] VITALS: BP 136/69
[2020-11-11 11:10] LABS: TOTAL PROTEIN,RANDOM URINE 34.1 MG/DL (0.0-12.0)
[2020-11-11 11:10] LABS: ALT/SGPT 10 U/L (12-78); BILIRUBIN,TOTAL 0.2 MG/DL (0.2-1.0); CREATININE FOR GFR 0.68 MG/DL (0.55-1.30); GLOMERULAR FILTRATION RATE > 60.0 (>60); LDH LACTATE DEHYDROGENASE 173 U/L (84-246)
--- NOTE | 2020-11-11 12:23 | REP ---
INDICATION: growth di di twins. follow up X 2 COMPARISON: 05/09/2020 TECHNIQUE: Transabdominal obstetrical ultrasound with color Doppler evaluation. FINDINGS: Examination demonstrates advanced dichorionic diamniotic twin live intrauterine . Gestational age by LMP and 1st ultrasound 35 weeks 3 days with estimated date of delivery 12/13/2020. Cervix measures 3.0 cm in length and appears closed. TWIN A: Cephalic presentation towards right side of the uterus. heart rate equals 134 beats per minute. Placenta noted anterior and grade 1. Amniotic fluid volume deepest pocket: 4.5 cm Estimated weight by biometric measurements 2280 g (12th percentile) TWIN B: Transverse towards left side of the uterus. heart rate equals 142 beats per minute. Placenta noted anterior and grade 1. Amniotic fluid volume deepest pocket: 4.9 cm Estimated weight by biometric measurements 2663 g (48th percentile) IMPRESSION: Live advanced twin gestation. <Electronically signed by Enrique Washington > 11/11/20 1225
[2020-11-11 12:41] VITALS: BP 124/85
[2020-11-11 13:36] VITALS: BP 130/79
[2020-11-11 14:05] VITALS: BP 143/77
[2020-11-11 14:15] VITALS: BP 144/83
--- NOTE | 2020-11-11 15:20 | IPNPDOC ---
Text Note Date of Service The patient was seen on 11/11/20. NOTE Subjective: Erasto is a 30-year-old female who is a at 35.3 weeks [facility] with di/di twins and an ADAMS of 12/13/20 based off of her LMP and consistent with her first trimester ultrasound. She initiated care in her first trimester. Her has been complicated by a history of GHTN with 2 prior pregnancies. She was also given betamethasone for lung maturity on 10/15/20 due to cervical dilation of /-2. Both babies are cephalic. She presented to her routine OB appointment today with complaints of random headaches that go away without taking anything and a BP of 140/90. She was sent to L&D for monitoring due to being recently diagnosed with preeclampsia. She currently denies headaches or any other preeclamptic symptom. She reports both babies are very active. She denies vaginal bleeding or leaking of fluid. She does report occasional contractions/tightening. OB Hx: -11/2016: at 39 weeks of female weighting 6 lbs 14 oz, complicated by GHTN -03/2018: at 37 weeks of male weighting 7 lbs 6 oz, complicated by GHTN PMHx: hypothyroidism SHx: wisdom teeth FHx: diabetes, HTN, heart disease, hypothyroidism, asthma Social Hx: nonsmoker, , denies history of alcohol or drug abuse. Objective: FHR A: 130, moderate variability, positive accelerations, no decelerations. FHR B: 140, moderate variability, positive accelerations, no decelerations. [place]: occasional contractions General: alert and oriented. Does not appear to be in any distress. Respiratory: Regular rate. No use of accessory muscles. Lungs clear bilaterally. Abdomen: gravid, soft to palpation Extremities: generalized edema in feet and legs. Assessment: di/di twin gestation at 35.3 weeks, no change in previous diagnosis of preeclampsia Plan: After discussing plan of care with both Dr. Eldridge and Dr. Menard along with labs and ultrasound they have decided to keep induction date that is set. Reviewed plans with patient. Reviewed that this may change if anything changes physically with her or babies. Plan is for BP check with nurse once per week and routine OB care with BPP weekly. She is to call with any changes. Reviewed preeclamptic symptoms, kick count, labor signs, and danger signs to report. Discharged to home with . VS,Fishbone, I+O VS, Fishbone, I+O Laboratory Tests 11/11/20 10:30 Item Value Date Time Urine Random Creatinine 205.0 MG/DL 11/11/20 1026 Urine Random Total Protein 34.1 MG/DL H 11/11/20 1026 Item Value Date Time Creatinine 0.68 MG/DL 11/11/20 1030 Glomerular Filtration Rate > 60.0 11/11/20 1030 Uric Acid 8.0 MG/DL H 11/11/20 1030 Total Bilirubin 0.2 MG/DL 11/11/20 1030 Aspartate Amino Transf (AST/SGOT) 11 U/L 11/11/20 1030 Alanine Aminotransferase (ALT/SGPT) 10 U/L L 11/11/20 1030 Lactate Dehydrogenase 173 U/L 11/11/20 1030 Vital Signs Label Value Date Time Patient Temperature 99.4 degrees F 11/11/20 1002 Temperature Source Temporal 11/11/20 1002 Pulse 92 11/11/20 1002 Respiratory Rate 20 bpm 11/11/20 1002 Blood Pressure Assessment 138/85 (102) 11/11/20 1002 Source Automatic Cuff (NIBP) Bedside Pulse Oximetry 98 % 11/11/20 1002 NAME: ERASTO RANGEL DATE OF : 1990 AGE: 30 SEX: F REPORT #: [id number] ROOM: [facility] TECHNOLOGIST: DAISY DOCTOR: MATTHEW FERRERA CNM Ordered for Date&Time: 11/11/20 1136 cc: [~ rep ct ivnm] Service Date&Time: 11/11/20 1206 EXAMINATION REQUESTED: OBS FOLL UP OR REPEAT EACH GES REASON FOR PATIENT VISIT: LABOR CHECK REASON FOR EXAM/COMMENT: growth di di twins. follow up X 2 INDICATION: growth di di twins. follow up X 2 COMPARISON: 05/09/2020 TECHNIQUE: Transabdominal obstetrical ultrasound with color Doppler evaluation. FINDINGS: Examination demonstrates advanced dichorionic diamniotic twin live intrauterine . Gestational age by LMP and 1st ultrasound 35 weeks 3 days with estimated date of delivery 12/13/2020. Cervix measures 3.0 cm in length and appears closed. TWIN A: Cephalic presentation towards right side of the uterus. heart rate equals 134 beats per minute. Placenta noted anterior and grade 1. Amniotic fluid volume deepest pocket: 4.5 cm Estimated weight by biometric measurements 2280 g (12th percentile) TWIN B: Transverse towards left side of the uterus. heart rate equals 142 beats per minute. Placenta noted anterior and grade 1. Amniotic fluid volume deepest pocket: 4.9 cm Estimated weight by biometric measurements 2663 g (48th percentile) IMPRESSION: Live advanced twin gestation. <Electronically signed by Enrique Washington > 11/11/20 1220 MATTHEW FERRERA CNM Nov 11, 2020 15:20
== END 2020-11-11 14:17 | disposition home or self-care (01) ==
LOC: M LDO 09:38
PROVIDERS: ATTEND Advanced Practice Midwife
DX: O30.043 Twin pregnancy, dichorionic/diamniotic, third trimester (principal); Z3A.35 35 weeks gestation of pregnancy; O14.03 Mild to moderate pre-eclampsia, third trimester
CPT/HCPCS: 36415; 59025; 76812; 76816; 82247; 82565; 82570; 83615; 84156; 84450; 84460; 84550; 85027; G0378; G0463

== ENCOUNTER 2020-11-14 10:16 | Outpatient (CLI) | payer OTHER ==
[~2020-11-14] VITALS: Ht 157.5 cm; Wt 90.6 kg
[~2020-11-14 10:16] MED LIST changes: +ASPI81CH33 PO; +TUMS500C PO
[2020-11-14 10:40] VITALS: BP 166/98
[2020-11-14 11:05] VITALS: BP 142/86
[2020-11-14 11:39] LABS: HEMATOCRIT 38.4 % (36.0-47.0); HEMOGLOBIN 12.3 g/dl (12.0-15.5); MEAN CORPUSCULAR HEMOGLOBIN 27.6 pg (27.0-33.0); MEAN CORPUSCULAR VOLUME 86.3 fl (80.0-96.0); PLATELET COUNT, AUTOMATED 177 10^3/uL (150-450); RED BLOOD COUNT 4.45 10^6/uL (4.00-5.40); WHITE BLOOD COUNT 11.5 10^3/uL (4.0-10.0)
[2020-11-14 12:04] VITALS: BP 135/77
[2020-11-14 12:22] LABS: ALBUMIN 2.6 GM/DL (3.2-5.2); ALT/SGPT 11 U/L (12-78); BILIRUBIN,TOTAL 0.2 MG/DL (0.2-1.0); BLOOD UREA NITROGEN 11 MG/DL (7-18); CALCIUM LEVEL 10.4 MG/DL (8.5-10.1); CARBON DIOXIDE LEVEL 20 MEQ/L (21-32); CHLORIDE LEVEL 110 MEQ/L (98-107); CREATININE FOR GFR 0.71 MG/DL (0.55-1.30); GLOMERULAR FILTRATION RATE > 60.0 (>60); GLUCOSE, FASTING 73 MG/DL (70-100); POTASSIUM SERUM 4.5 MEQ/L (3.5-5.1); SODIUM LEVEL 139 MEQ/L (136-145); TOTAL PROTEIN 6.1 GM/DL (6.4-8.2)
[2020-11-14 13:40] LABS: TOTAL PROTEIN,RANDOM URINE 25.6 MG/DL (0.0-12.0)
--- NOTE | 2020-11-14 14:35 | IPNPDOC ---
Text Note Date of Service The patient was seen on 11/14/20. NOTE Triage Note Subjective: Cristina is a 30yo with di/di twin gestation at 35w6d having ADAMS of 12/13/20 by lmp c/w early u/s presenting from clinic for severe range bp. She has known dx of GHTN with last evaluation with labs done on 11/11. She is s/p course of betamethasone 10/15 due for early cervical dilation . Fetuses have been cephalic overall (last u/s on 11/11 documented B as transverse, but patient reports right after that B returned to usual cephalic presentation). A prior note documents a diagnosis of pre-eclampsia, but I cannot see anything in her OB chart regarding this diagnosis. She certainly has the diagnosis of GHTN at this point, which she had in both of her prior pregnancies. She currently denies headaches or any other preeclamptic symptom. She reports both babies are very active. She denies vaginal bleeding or leaking of fluid. She feels occas ional ctx, but nothing strong/regular. She has mostly been doing modified bed rest at home. Only physical complaint is nausea the past week or so. OB Hx: -11/2016: at 39 weeks of female weighing 6 lbs 14 oz, complicated by GHTN -03/2018: at 37 weeks of male weighing 7 lbs 6 oz, complicated by GHTN PMHx: hypothyroidism SHx: wisdom teeth FHx: diabetes, HTN, heart disease, hypothyroidism, asthma Social Hx: nonsmoker, , denies history of alcohol or drug abuse. Objective: BP's: initial 166/98 then all normal to mild range after that (mostly 140's/80's). Afebrile. Cat I FHRT for both fetuses with moderate variability, positive accelerations, no decelerations x2 [place]: irregular contractions General: alert and oriented. NAD Respiratory: Regular rate. No use of accessory muscles. Abdomen: gravid, soft, NTTP Extremities: generalized edema in feet and legs. SCE: 3--2 Labs: CBC: H/H 12.3/38.4, plt 177 CMP: creatinine 0.71, AST 20, ALT 11 urine prot:creat 0.19 Assessment: Cristina is a 30yo with di/di twin gestation at 35w6d having ADAMS of 12/13/20 by lmp c/w early u/s with GHTN vs pre-eclampsia (based on prior documentation) with NO severe features having stable labs and overall mild range bp's. Urine prot:creat 0.19. Cat I FHRT x2. No e/o labor, though she has made cervical change management specialist the last month to 3-/-2. Plan: -Discussed lab results and findings with patient, provided reassurance -Patient to come to clinic for nurse visit with bp check on 11/18 -Pt to continue with weekly BPPs (next scheduled 11/19) and regular office visits -Pt already scheduled for IOL on 10/25 -Discussed return precautions with patient, advised on modified bed rest -Safe for discharge home Lina Peralta MD VS,Beau, I+O VSBeau, I+O Laboratory Tests 11/14/20 11:23 Vital Signs Date Time Temp Pulse Resp B/P (MAP) Pulse Ox O2 Delivery O2 Flow Rate FiO2 11/14/20 12:04 81 18 135/77 (96) 11/14/20 10:40 99.2 Lina Peralta MD Nov 14, 2020 14:35
== END 2020-11-14 14:05 | disposition home or self-care (01) ==
LOC: M LDO 10:16
PROVIDERS: ATTEND Obstetrics & Gynecology
DX: O30.043 Twin pregnancy, dichorionic/diamniotic, third trimester (principal); O13.3 Gestational [pregnancy-induced] hypertension without significant proteinuria, third trimester; Z3A.35 35 weeks gestation of pregnancy
CPT/HCPCS: 59025; 80053; 82570; 84156; 85027; 86780; 86850; G0378; G0463

== ENCOUNTER 2020-11-19 11:25 | Outpatient (CLI) | payer OTHER ==
[~2020-11-19] VITALS: Ht 157.5 cm; Wt 91.6 kg
[2020-11-19] MEDS ORDERED: ACETAMINOPHEN 500 MG TAB PO ONE (11:35)
[2020-11-19 11:54] VITALS: BP 136/84
[2020-11-19 12:11] VITALS: BP 136/92
[2020-11-19 12:14] LABS: HEMATOCRIT 37.4 % (36.0-47.0); HEMOGLOBIN 12.2 g/dl (12.0-15.5); MEAN CORPUSCULAR HGB CONC 32.6 g/dl (32.0-36.5); PLATELET COUNT, AUTOMATED 165 10^3/uL (150-450); RED BLOOD COUNT 4.35 10^6/uL (4.00-5.40); WHITE BLOOD COUNT 10.3 10^3/uL (4.0-10.0)
[2020-11-19 12:27] VITALS: BP 130/86
[2020-11-19 12:46] LABS: ALBUMIN 2.6 GM/DL (3.2-5.2); ALT/SGPT 12 U/L (12-78); BILIRUBIN,TOTAL 0.1 MG/DL (0.2-1.0); BLOOD UREA NITROGEN 14 MG/DL (7-18); CALCIUM LEVEL 8.8 MG/DL (8.5-10.1); CARBON DIOXIDE LEVEL 19 MEQ/L (21-32); CHLORIDE LEVEL 113 MEQ/L (98-107); CREATININE FOR GFR 0.69 MG/DL (0.55-1.30); GLOMERULAR FILTRATION RATE > 60.0 (>60); GLUCOSE, FASTING 105 MG/DL (70-100); POTASSIUM SERUM 4.3 MEQ/L (3.5-5.1); SODIUM LEVEL 140 MEQ/L (136-145); TOTAL PROTEIN 5.9 GM/DL (6.4-8.2)
[2020-11-19 12:56] LABS: TOTAL PROTEIN,RANDOM URINE 36.2 MG/DL (0.0-12.0)
--- NOTE | 2020-11-19 13:27 | IPNPDOC ---
Text Note Date of Service The patient was seen on 11/19/20. NOTE Triage Note Subjective: Cristina is a 30yo with di/di twin gestation at 36w4d having ADAMS of 12/13/20 by lmp c/w early u/s presenting from clinic for one severe range bp (160's systolic). She was seen on 11/14 for this exact scenario as well. She has known dx of GHTN. She is s/p course of betamethasone 10/15 due for early cervical dilation . Fetuses have been cephalic/cephalic. A prior note documents a diagnosis of pre-eclampsia, but I cannot see anything in her OB c whipple regarding this diagnosis. She certainly has the diagnosis of GHTN at this point, which she had in both of her prior pregnancies. She currently denies headaches or any other preeclamptic symptoms. She reports both babies are very active. She denies vaginal bleeding or leaking of fluid. Does believe she recently "lost her mucous plug" but denies any other associated changes. She feels occasional ctx, but nothing strong/regular. She has been doing modified bed rest at home. OB Hx: -11/2016: at 39 weeks of female weighing 6 lbs 14 oz, complicated by GHTN -03/2018: at 37 weeks of male weighing 7 lbs 6 oz, complicated by GHTN PMHx: hypothyroidism SHx: wisdom teeth FHx: diabetes, HTN, heart disease, hypothyroidism, asthma Social Hx: nonsmoker, , denies history of alcohol or drug abuse. Objective: 3 bp's all normotensive here while sitting up. Afebrile. Reactive NST for both fetuses with moderate variability, positive accelerations, no decelerations x2 [place]: irregular contractions General: alert and oriented. NAD Respiratory: Regular rate. No use of accessory muscles. Abdomen: gravid, soft, NTTP Extremities: generalized edema in feet and legs. Labs: CBC: H/H 12.2/37.4, plt 165 CMP: creatinine 0.69, LFTs wnl urine prot:creat 0.299 Assessment: Cristina is a 30yo with di/di twin gestation at 36w4d having ADAMS of 12/13/20 by lmp c/w early u/s with GHTN vs pre-eclampsia (based on prior documentation) with NO severe features showing only a small increase in urine prot:creat from prior on 11/14. Normotensive on serial bps. Reactive NST x2. Plan: -Discussed lab results and findings with patient, provided reassurance -Discussed plan of care with Dr. Ramos who recommends IOL on 11/21, pt placed on IOL list and plan of care discussed with her -Discussed return precautions with patient -Safe for discharge home Lina Peralta MD VS,Judy Yanez+Agatha VSBeau I+Agatha Laboratory Tests 11/19/20 12:03 Vital Signs Date Time Temp Pulse Resp B/P (MAP) Pulse Ox O2 Delivery O2 Flow Rate FiO2 11/19/20 12:27 93 18 130/86 (101) 96 Room Air 11/19/20 11:54 99.1 Lina Peralta MD Nov 19, 2020 13:27
== END 2020-11-19 13:33 | disposition home or self-care (01) ==
LOC: M LDO 11:25
PROVIDERS: ATTEND Obstetrics & Gynecology
DX: O30.043 Twin pregnancy, dichorionic/diamniotic, third trimester (principal); Z3A.36 36 weeks gestation of pregnancy; O13.3 Gestational [pregnancy-induced] hypertension without significant proteinuria, third trimester
CPT/HCPCS: 36415; 80053; 82570; 84156; 85027; G0378; G0463

== ENCOUNTER 2020-11-21 06:55 | Inpatient (IN) | payer OTHER ==
[2020-11-21] VITALS (65 sets, daily range): BP systolic 115–196; BP diastolic 65–118
[~2020-11-21] VITALS: Ht 157.5 cm; Wt 91.9 kg
[~2020-11-21 06:55] MED LIST changes: +FERR324T21 PO; -FERR325T16 PO
[2020-11-21 08:39] LABS: HEMOGLOBIN 11.8 g/dl (12.0-15.5); MEAN CORPUSCULAR HEMOGLOBIN 27.1 pg (27.0-33.0); MEAN CORPUSCULAR HGB CONC 31.9 g/dl (32.0-36.5); MEAN CORPUSCULAR VOLUME 85.1 fl (80.0-96.0); PLATELET COUNT, AUTOMATED 161 10^3/uL (150-450); RED BLOOD COUNT 4.35 10^6/uL (4.00-5.40); WHITE BLOOD COUNT 10.5 10^3/uL (4.0-10.0)
[2020-11-21 08:49] LABS: ALT/SGPT 12 U/L (12-78); BILIRUBIN,TOTAL 0.2 MG/DL (0.2-1.0); CREATININE FOR GFR 0.66 MG/DL (0.55-1.30); GLOMERULAR FILTRATION RATE > 60.0 (>60); LDH LACTATE DEHYDROGENASE 205 U/L (84-246); URIC ACID 7.9 MG/DL (2.6-6.0)
[2020-11-21] MEDS ORDERED: LACTATED RINGER'S 1000 ML IV STA (09:13)
[2020-11-21] MEDS ORDERED: OXYTOCIN INJ 10 UNITS/ML VIAL (J2590) IV PRN (09:15)
[2020-11-21] MEDS ORDERED: LR 1,000 ML IV SCH ×2 (09:15→20:25)
[2020-11-21] MEDS ORDERED: TRANEXAMIC ACID INJection 1,000 MG in NS 100 ML IV PRN (09:15)
[2020-11-21] MEDS ORDERED: OXYTOCIN DRIP 30 UNITS in IV 1 EA IV PRN ×6 (09:15)
[2020-11-21] MEDS ORDERED: CARBOPROST TROMETHAMINE 250 MCG/ML AMP IM PRN (09:15)
[2020-11-21] MEDS ORDERED: OXYTOCIN INJ 10 UNITS/ML VIAL (J2590) IM PRN (09:15)
[2020-11-21] MEDS ORDERED: LIDOCAINE 1% MDV 20ML VIAL INFIL PRN (09:15)
[2020-11-21] MEDS ORDERED: OXYTOCIN DRIP 30 UNITS in IV 1 EA IV SCH ×2 (09:15→20:25)
--- NOTE | 2020-11-21 09:31 | HPEPDOC ---
Obstetrical History & Physical General Date of Admission Nov 21, 2020 at 06:55 History of Present Illness 30-year-old at 36+6 weeks gestation. , EDC 12/13/2020. Presents for an induction of labor. Indication for induction: Preeclampsia with severe features. Patient is having frequent significant headaches throughout the last 2 weeks. Clinical workup consistent with preeclampsia. There is also concern for evolving growth restriction of twin A. She denies vaginal bleeding, loss of fluid or painful, frequent uterine contractions. She reports regular movement. She currently denies headache, visual changes, right upper quadrant pain, shortness of breath or chest pain. course: 1. Dichorionic diamniotic twin gestation; growth discordance, but technically no growth restriction. Twin B larger than twin A, 48th and 12th percentile respectively 2. Preeclampsia was severe features; pt has received corticosteroids. PMH: Thyroid disease? (No medications and TSH within normal limits) SH: None Meds: vitamin All: NKDA PIECE HAND: No STI or dysplasia OB: Term 2 (2016, 2017); largest 7 lbs. 6 oz. Gestational hypertension with each Sochx: No tobacco, alcohol or drug use FamHx: Diabetes, hypertension, heart disease, hypothyroidism, asthma labs: Blood type O+, antibody screen negative, HepBsAg neg, HIV neg, rubella immune, Hep C antibody negative, RPR nonreactive, CT/GC neg, urine culture negative, 1 hour glucose challenge test 94, GBS negative Past Medical History Allergies Coded Allergies: FRUIT (Verified Allergy, Mild, 11/11/20) RASH ON LIPS FROM CITRIC FRUITS Medications Scheduled Aspirin (Aspirin) 81 Mg Tab.chew, 1 TAB PO DAILY for pain Docusate Sodium (Colace) 100 Mg Capsule, 100 MG PO BID for constipation Ferrous Gluconate (Ferrous Gluconate) 324 Mg Tablet, 1 TAB PO TID for iron Levothyroxine Sodium (Levothyroxine Sodium) 137 Mcg Tab, 137 MCG PO DAILY No.137/Iron/Folic Acd ( Vitamin Tablet) 1 Tab Tab, 1 TAB PO DAILY Scheduled PRN Calcium Carbonate (Tums) 200 Mg Tab.chew, 2 TAB PO Q6HP PRN for INDIGESTION Physical Examination Physical Examination GENERAL: Alert and oriented times three. ABDOMEN: Gravid and non-tender to touch. FETUS: Is vertex (VTX) by sterile vaginal examination (SVE), fetus is vertex (VTX) by Hao. HEART RATE: Regular rate and rhythm. LUNGS: Clear to auscultation (CTA). EXTREMITIES: No edema. No clonus. Deep tendon reflexes (DTRs) + 2. SVE: 4-5cm, 80%, -2 station, cephalic, no bloody show. EFM: Cat I x 2 [place]: irregular contractions. US,hopper: cephalic, cephalic presentation confirmed. Vital Signs/I&O Vital Signs Date Time Temp Pulse Resp B/P (MAP) Pulse Ox O2 Delivery O2 Flow Rate FiO2 11/21/20 08:15 89 131/79 (96) 11/21/20 07:14 98.9 18 Laboratory Data 24H LABS Laboratory Tests 2 11/21/20 07:03: Serology Scanned Report Hepatitis B Testing 11/21/20 08:19: Nucleated Red Blood Cells % (auto) 0.0, Glomerular Filtration Rate > 60.0, Uric Acid 7.9H, Total Bilirubin 0.2#, Aspartate Amino Transf (AST/SGOT) 17, Alanine Aminotransferase (ALT/SGPT) 12, Lactate Dehydrogenase 205 CBC/BMP Laboratory Tests 11/21/20 08:19 Assessment/Plan Assessment 30yo at 36+6 weeks EGA. Di/Di twins. Pre-e w/ severe features. Reassuring status thus far. Plan Admit and orient. Media Planner and consent. Labs and intravenous (IV) per unit protocol. Counseled on Pitocin and induction of labor (IOL). Anticipate normal spontaneous delivery (). C-S as appropriate. SHEELA WILHELM DO Nov 21, 2020 09:30
[2020-11-21] MEDS ORDERED: FENTANYL 2MCG/ML ROPIVACAINE 0.2% IN 0.9% NACL 100ML IVBAG As Ordered ONE (10:15)
[2020-11-21 10:23] LABS: TOTAL PROTEIN,RANDOM URINE 29.1 MG/DL (0.0-12.0)
[2020-11-21] MEDS ORDERED: ONDANSETRON 4MG/2ML VIAL IV PRN ×3 (11:20→20:25)
[2020-11-21] MEDS ORDERED: EPIDURAL/PCA KEYS XX PRN (11:30)
[2020-11-21] MEDS ORDERED: ePHEDrine SULFATE 25 MG/5 ML(5MG/ML) SYRINGE IV PRN (11:30)
[2020-11-21] MEDS ORDERED: REFRIGERATOR IV KEYS XX PRN (11:30)
[2020-11-21] MEDS ORDERED: FENTANYL/ROPIVACAINE/NACL BAG 100 ML EPIDURAL SCH (11:30)
[2020-11-21] MEDS ORDERED: diphenhydrAMINE 50MG/ML VIAL (J1200) IV PRN (11:30)
[2020-11-21] MEDS ORDERED: EPIDURAL COMMENT XX SCH (11:30)
[2020-11-21] MEDS ORDERED: NALOXONE INJ 0.4MG/1ML VIAL (J2310 PER 1MG) IV PRN (11:30)
[2020-11-21] MEDS ORDERED: LACTATED RINGER'S 1000 ML IV PRN (11:30)
--- NOTE | 2020-11-21 17:54 | IPNPDOC ---
Obstetrical Progress Note Date of Service Nov 21, 2020 Subjective Patient is comfortable with her epidural. She denies any LOF or heavy VB. Objective Vital Signs Date Time Temp Pulse Resp B/P (MAP) Pulse Ox O2 Delivery O2 Flow Rate FiO2 11/21/20 16:36 99 138/87 (104) 11/21/20 16:07 99.5 16 Assessment Heart Rate Tracing: Category I (both twins) Tocometer Contractions: Yes Frequency: every 2-5 min. Sterile Vaginal Examination Dilation: 6 cm Effacement (%): 80% Station: -2 Cervical Consistency: Soft Cervical Position: Anterior Assessment and Plan Status: Reassuring (x both twins) Anticipate: Vaginal Delivery Additional Comments Continue with Pitocin. Discussed w/ patient the plan to deliver via in OR once she is in the second stage of labor. SHEELA WILHELM DO Nov 21, 2020 17:54
[2020-11-21] MEDS ORDERED: fentaNYL 100 MCG/2 ML INJECTION (J3010) As Ordered ONE (19:32)
[2020-11-21] MEDS ORDERED: LIDOCAINE PRES-FREE 2% 10ML AMP As Ordered ONE (19:54)
[2020-11-21] MEDS ORDERED: LABETALOL 100MG/20ML VIAL As Ordered ONE (20:01)
[2020-11-21] MEDS ORDERED: MEASLES,MUMPS,RUBELLA VACCINE INJ (MMR-II) (90707) SC SCH (20:25)
[2020-11-21] MEDS ORDERED: RHOGAM 300 MCG (1500 IU) INJ (J2790) IM SCH (20:25)
[2020-11-21] MEDS ORDERED: IBUPROFEN 600MG TAB PO PRN (20:25)
[2020-11-21] MEDS ORDERED: ACETAMINOPHEN TAB 650MG DOSE (2X325MG) PO PRN (20:25)
[2020-11-21] MEDS ORDERED: DOCUSATE SODIUM 100MG CAPSULE PO PRN (20:25)
[2020-11-21] MEDS ORDERED: DIBUCAINE 1% OINTMENT 30GM TOP PRN (20:25)
--- NOTE | 2020-11-21 20:33 | DNPDOC ---
[facility] Delivery Note Delivery Note DATE OF DELIVERY: 11/21/2020 Spontaneous vaginal delivery of twin A and twin B TIME OF DELIVERY: Twin A 1954, Twin B 2006 [facility] IN: Dr. Juan F Ramos DO FACOG ANESTHESIA: Epidural LACERATION:. Second-degree ESTIMATED BLOOD LOSS: 300 mL. FINDINGS: Twin A 5 pound 5 ounce (2408g) Female , Score 9 and 10. Twin B 6lbs 10oz (3002g), Female . Apgars 7 and 8. DELIVERY SUMMARY: The active phase and second stage of labor progressed in normal fashion.. She received Pitocin augmentation throughout her labor course. FHR for both twins predominantly Category 1 throughout labor. The head of twin A delivered in the ALAN position, and restituted LOT. A loose nuchal cord was noted and reduced without any difficulty. The anterior shoulder delivered with gentle downward guidance and the remainder of the body delivered with ease. The baby was placed on the patient's chest. Delayed cord clamping occurred for approximately 1 minute. The cord was then doubly clamped and cut. Twin B was confirmed to be in the cephalic presentation with a bedside ultrasound and with a vaginal exam. Twin B's amniotic sac was artificially ruptured productive of clear amniotic fluid. The head of twin B delivered in the ALAN position, and restituted LOT. A loose nuchal cord was noted and reduced without any difficulty. The anterior shoulder delivered with gentle downward guidance and the remainder of the body delivered with ease. The baby was placed on the patient's chest. Delayed cord clamping occurred for approximately 1 minute. The cord was then doubly clamped and cut. IV Pitocin was bolused to actively manage the third stage of labor. The placentas delivered intact without any difficulty within 10 minutes of delivery. The uterine fundus was noted to be firm and 2 cm below the umbilicus. The cervix, vagina, vulva and perineum were inspected. A second-degree laceration was noted and immediately repaired with 3-0 Vicryl in typical fashion. Excellent hemostasis was noted. Sponge, needle and instrument counts were correct per protocol. DO MERLINE Almaraz JONATHAN R. DO Nov 21, 2020 20:33
--- NOTE | 2020-11-21 21:54 | IPNPDOC ---
Obstetrical Progress Note Date of Service Nov 21, 2020 Subjective Called into room by RN to assess bleeding. Vitals: hypertensive, normal HR, afebrile. A&O x 4. Abd: fundus firm at U-2cm. Fundal massage productive of small blood clots. No persistent bleeding. Cytotec 1000mcg ID administered to maintain uterine tone/reduce uterine bleeding. Continue to watch closely. Objective Vital Signs Date Time Temp Pulse Resp B/P (MAP) Pulse Ox O2 Delivery O2 Flow Rate FiO2 11/21/20 18:37 110 157/96 (116) 11/21/20 16:07 99.5 16 SHEELA WILHELM DO Nov 21, 2020 21:54
[2020-11-21] MEDS ORDERED: LABETALOL 100MG/20ML VIAL IV STA ×2 (22:14→23:38)
[2020-11-21] MEDS ORDERED: MORPHINE 4 MG/ML 1ML VIAL/SYRINGE (J2270) IV ONE (23:50)
[2020-11-21] MEDS ORDERED: PROMETHAZINE INJ 25 MG/ML VIAL (J2550) IV ONE (23:50)
[2020-11-22] VITALS (47 sets, daily range): BP systolic 115–204; BP diastolic 61–120
[2020-11-22] MEDS ORDERED: hydrALAZINE 20MG/ML 1ML VIAL (J0360 PER 20MG) IV ONE (00:25)
[2020-11-22] MEDS ORDERED: MAG Sulf (L&D) 4 GM/100 ML 4 GM in IV 1 EA IV ONE (00:25)
[2020-11-22 00:36] LABS: INR 1.01; PROTHROMBIN TIME 13.5 SECONDS (12.5-14.3)
[2020-11-22 00:40] LABS: ALBUMIN 2.1 GM/DL (3.2-5.2); ALT/SGPT 108 U/L (12-78); BILIRUBIN,TOTAL 0.3 MG/DL (0.2-1.0); BLOOD UREA NITROGEN 9 MG/DL (7-18); CALCIUM LEVEL 10.5 MG/DL (8.5-10.1); CARBON DIOXIDE LEVEL 21 MEQ/L (21-32); CHLORIDE LEVEL 107 MEQ/L (98-107); CREATININE FOR GFR 0.88 MG/DL (0.55-1.30); GLOMERULAR FILTRATION RATE > 60.0 (>60); GLUCOSE, FASTING 102 MG/DL (70-100); LDH LACTATE DEHYDROGENASE 468 U/L (84-246); SODIUM LEVEL 137 MEQ/L (136-145); TOTAL PROTEIN 5.1 GM/DL (6.4-8.2); URIC ACID 8.1 MG/DL (2.6-6.0)
[2020-11-22] MEDS ORDERED: hydrALAZINE 20MG/ML 1ML VIAL (J0360 PER 20MG) IV SCH (00:45)
[2020-11-22 00:51] LABS: HEMATOCRIT 35.8 % (36.0-47.0); HEMOGLOBIN 11.4 g/dl (12.0-15.5); MEAN CORPUSCULAR HEMOGLOBIN 27.6 pg (27.0-33.0); MEAN CORPUSCULAR HGB CONC 31.8 g/dl (32.0-36.5); MEAN CORPUSCULAR VOLUME 86.7 fl (80.0-96.0); PLATELET COUNT, AUTOMATED 135 10^3/uL (150-450); RED BLOOD COUNT 4.13 10^6/uL (4.00-5.40); WHITE BLOOD COUNT 13.9 10^3/uL (4.0-10.0)
[2020-11-22] MEDS: MAG Sulf (OBGYN) 20GM/500ML 20,000 MG in IV 1 EA IV SCH ×3 (01:18→20:51)
[2020-11-22] MEDS ORDERED: LABETALOL 100MG/20ML VIAL IV STA (05:54)
[2020-11-22] MEDS: ACETAMINOPHEN 500 MG TAB PO PRN ×2 (06:00→20:10)
--- NOTE | 2020-11-22 07:47 | IPNPDOC ---
Text Note Date of Service The patient was seen on 11/22/20. NOTE Progress Reports feeling better than yesterday. "Pain is a 3" no further headache or visual disturbances. Dull aches. . VSS, BP mild elevation following IV medications Magnesium running per order Fundus firm, NT Lochia rubra light without odor Preeclampsia Start labetalol 200mg BID per consult Dr Ramos Continue magnesium x 24 hours Close observation of BP. VS,Fishbone, I+O VS, Fishbone, I+O Laboratory Tests 11/21/20 08:19 11/21/20 23:57 Vital Signs Date Time Temp Pulse Resp B/P (MAP) Pulse Ox O2 Delivery O2 Flow Rate FiO2 11/22/20 06:59 100 17 141/88 (105) 11/22/20 05:49 100.3 I&O- Last 24 Hours up to 6 AM 11/22/20 06:00 Intake Total 3802 ml Output Total 2300 ml Balance 1502 ml Clara Daniel CNM Nov 22, 2020 07:47
[2020-11-22] MEDS: LABETALOL 200 MG TAB PO SCH ×2 (08:49→20:10)
[2020-11-22] MEDS: PRENATAL VITAMINS CHEWABLE TABLET PO SCH (18:52)
[2020-11-23] VITALS (8 sets, daily range): BP systolic 109–130; BP diastolic 56–76
[2020-11-23] MEDS: MAG Sulf (OBGYN) 20GM/500ML 20,000 MG in IV 1 EA IV SCH ×2 (06:25→16:25)
--- NOTE | 2020-11-23 07:17 | IPNPDOC ---
Text Note Date of Service The patient was seen on 11/23/20. NOTE "Feel better than I have in 2 days." Breast and bottle feeding. Voiding. Adequate pain management. Magnesium off during the night VSS, afebrile, normotensive with labetalol 200mg BID Breasts soft, nipples intact Fundus firm, NT, down 2FB Lochia rubra light without odor Perineum intact Legs negative Transfer to maternity Routine care. Consider discharge tomorrow depending upon blood pressures. VS,Fishbone, I+O VS, Fishbone, I+O Vital Signs Date Time Temp Pulse Resp B/P (MAP) Pulse Ox O2 Delivery O2 Flow Rate FiO2 11/23/20 04:23 98.3 85 18 124/71 (88) I&O- Last 24 Hours up to 6 AM 11/23/20 06:00 Intake Total 3622 ml Output Total 4700 ml Balance -1078 ml Clara Daniel CNM Nov 23, 2020 07:17
[2020-11-23] MEDS: IBUPROFEN 800 MG TAB PO PRN (07:48)
[2020-11-23] MEDS: PRENATAL VITAMINS CHEWABLE TABLET PO SCH (08:55)
[2020-11-23] MEDS: LABETALOL 200 MG TAB PO SCH ×2 (08:55→20:40)
[2020-11-24 02:00] VITALS: BP 123/76
[2020-11-24 06:00] VITALS: BP 140/93
[2020-11-24] MEDS ORDERED: LABE20TAB PO (06:49)
[2020-11-24] MEDS: PRENATAL VITAMINS CHEWABLE TABLET PO SCH (08:46)
[2020-11-24 08:47] VITALS: BP 142/94
[2020-11-24] MEDS: LABETALOL 200 MG TAB PO SCH (08:47)
[2020-11-24 09:00] VITALS: BP 142/94
[2020-11-24] MEDS: IBUPROFEN 800 MG TAB PO PRN (11:42)
== END 2020-11-24 11:47 | disposition home or self-care (01) | DRG 560 ==
LOC: M LDI 06:55 → M OBS 11-23 12:27
PROVIDERS: ADMIT Advanced Practice Midwife; ATTEND Obstetrics & Gynecology
PROC: 10E0XZZ Delivery of Products of Conception, External Approach (ICD-10-PCS; principal; 2020-11-21)
PROC: 0KQM0ZZ Repair Perineum Muscle, Open Approach (ICD-10-PCS; 2020-11-21)
PROC: 10907ZC Drainage of Amniotic Fluid, Therapeutic from Products of Conception, Via Natural or Artificial Opening (ICD-10-PCS; 2020-11-21)
PROC: 3E033VJ Introduction of Other Hormone into Peripheral Vein, Percutaneous Approach (ICD-10-PCS; 2020-11-21)
DX: O14.14 Severe pre-eclampsia complicating childbirth (principal); O30.043 Twin pregnancy, dichorionic/diamniotic, third trimester; Z37.2 Twins, both liveborn; Z3A.36 36 weeks gestation of pregnancy; O69.82X1 Labor and delivery complicated by other cord entanglement, without compression, fetus 1; O69.82X2 Labor and delivery complicated by other cord entanglement, without compression, fetus 2; Z37.0 Single live birth

== ENCOUNTER → 2020-12-13 | Outpatient (REF) | payer OTHER ==
[~2020-12-13] MED LIST changes: +LABE20TAB PO
[2020-12-13 17:14] LABS: BASO # 0.1 10^3/uL (0.0-0.2); BASO % 0.6 % (0.0-1.0); EOS # 0.4 10^3/uL (0.0-0.5); EOS % 5.2 % (0.0-3.0); HEMATOCRIT 43.3 % (36.0-47.0); HEMOGLOBIN 13.3 g/dl (12.0-15.5); LYMPH % 24.6 % (24.0-44.0); MEAN CORPUSCULAR HEMOGLOBIN 27.9 pg (27.0-33.0); MEAN CORPUSCULAR HGB CONC 30.7 g/dl (32.0-36.5); MEAN CORPUSCULAR VOLUME 90.8 fl (80.0-96.0); MONO # 0.6 10^3/uL (0.0-0.8); MONO % 7.2 % (2.0-8.0); NEUTROPHILS # 5.1 10^3/uL (1.5-8.5); NEUTROPHILS % 61.9 % (36.0-66.0); PLATELET COUNT, AUTOMATED 378 10^3/uL (150-450); RED BLOOD COUNT 4.77 10^6/uL (4.00-5.40); WHITE BLOOD COUNT 8.2 10^3/uL (4.0-10.0)
[2020-12-13 17:38] LABS: ALBUMIN 3.7 GM/DL (3.2-5.2); ALT/SGPT 29 U/L (12-78); BILIRUBIN,TOTAL 0.4 MG/DL (0.2-1.0); BLOOD UREA NITROGEN 18 MG/DL (7-18); CALCIUM LEVEL 9.6 MG/DL (8.5-10.1); CARBON DIOXIDE LEVEL 29 MEQ/L (21-32); CHLORIDE LEVEL 107 MEQ/L (98-107); CREATININE FOR GFR 0.75 MG/DL (0.55-1.30); GLOMERULAR FILTRATION RATE > 60.0 (>60); GLUCOSE, FASTING 85 MG/DL (70-100); LDH LACTATE DEHYDROGENASE 164 U/L (84-246); POTASSIUM SERUM 4.2 MEQ/L (3.5-5.1); SODIUM LEVEL 141 MEQ/L (136-145); TOTAL PROTEIN 7.2 GM/DL (6.4-8.2); URIC ACID 5.6 MG/DL (2.6-6.0)
[2020-12-13 18:53] LABS: INR 1.01; PROTHROMBIN TIME 13.5 SECONDS (12.5-14.3)
[2020-12-13 18:54] LABS: PARTIAL THROMBOPLASTIN TIME 32.4 SECONDS (24.2-38.5)
== END ==
LOC: M PLALAB 14:41
PROVIDERS: ATTEND Advanced Practice Midwife
DX: T14.8XXA Other injury of unspecified body region, initial encounter (principal)

== ENCOUNTER → 2021-04-03 | Outpatient (REF) | payer OTHER | LOC: M SFHCWAGY 13:21 | PROVIDERS: ATTEND Specialist | DX: Z12.4 Encounter for screening for malignant neoplasm of cervix (principal); R87.610 Atypical squamous cells of undetermined significance on cytologic smear of cervix (ASC-US) | CPT/HCPCS: 87624; G0123 ==

== ENCOUNTER 2021-08-04 09:22 | Emergency (ER) | payer OTHER ==
[~2021-08-04] VITALS: Ht 157.5 cm; Wt 160.0 kg
[2021-08-04] MEDS ORDERED: KETOROLAC 30 MG/ML 1ML VIAL IV ONE (11:00)
[2021-08-04] MEDS ORDERED: ONDANSETRON 4MG/2ML VIAL IV ONE (11:00)
[2021-08-04] MEDS ORDERED: NS 1,000 ML IV ONE (11:00)
[2021-08-04 11:23] LABS: HEMATOCRIT 41.3 % (36.0-47.0); HEMOGLOBIN 13.3 g/dl (12.0-15.5); LYMPH # 0.4 10^3/uL (1.5-5.0); LYMPH % 11.2 % (24.0-44.0); MEAN CORPUSCULAR HEMOGLOBIN 28.3 pg (27.0-33.0); MEAN CORPUSCULAR HGB CONC 32.2 g/dl (32.0-36.5); MEAN CORPUSCULAR VOLUME 87.9 fl (80.0-96.0); MONO # 0.1 10^3/uL (0.0-0.8); MONO % 4.1 % (2.0-8.0); NEUTROPHILS # 2.8 10^3/uL (1.5-8.5); NEUTROPHILS % 84.1 % (36.0-66.0); PLATELET COUNT, AUTOMATED 126 10^3/uL (150-450); WHITE BLOOD COUNT 3.4 10^3/uL (4.0-10.0)
[2021-08-04 11:56] LABS: ALBUMIN 3.5 GM/DL (3.2-5.2); ALT/SGPT 26 U/L (12-78); BILIRUBIN,DIRECT 0.1 MG/DL (0.0-0.2); BILIRUBIN,TOTAL 0.3 MG/DL (0.2-1.0); BLOOD UREA NITROGEN 11 MG/DL (7-18); CALCIUM LEVEL 8.2 MG/DL (8.5-10.1); CARBON DIOXIDE LEVEL 28 MEQ/L (21-32); CHLORIDE LEVEL 102 MEQ/L (98-107); CREATININE FOR GFR 0.78 MG/DL (0.55-1.30); GLOMERULAR FILTRATION RATE > 60.0 (>60); GLUCOSE, FASTING 107 MG/DL (70-100); LIPASE 141 U/L (73-393); POTASSIUM SERUM 3.7 MEQ/L (3.5-5.1); SODIUM LEVEL 136 MEQ/L (136-145); TOTAL PROTEIN 7.1 GM/DL (6.4-8.2)
--- NOTE | 2021-08-04 11:56 | REP ---
INDICATION: cough. COMPARISON: None. TECHNIQUE: PA and lateral FINDINGS: Scattered patchy interstitial and airspace opacities are identified. The pleural angles are sharp. The heart is not enlarged. The osseous structures are within normal limits. IMPRESSION: Patchy bilateral pneumonia. <Electronically signed by Anmol Mosley > 08/04/21 [id number]
[2021-08-04] MEDS ORDERED: ISOVUE-370 76% 100ML VIAL As Ordered ONE (12:06)
--- NOTE | 2021-08-04 12:20 | REP ---
INDICATION: periumbilic pain. COMPARISON: None TECHNIQUE: Axial contrast-enhanced images from the lung bases to the pubic symphysis using 100 cc Isovue 370 intravenous contrast material. Coronal and sagittal reformations obtained.. This CT examination was performed using the following dose reduction techniques: Automated exposure control, adjustment of mA and/or kv according to the patient's size, and the use of iterative reconstruction technique. FINDINGS: Lung bases demonstrate patchy early ground-glass scattered opacities concerning for multifocal pneumonia including COVID-19 pulmonary disease. Liver, spleen, pancreas, gallbladder, bilateral adrenal glands and kidneys are normal. The enteric system including stomach, small, and large bowel appears normal. No evidence for obstruction or acute inflammatory process. Normal terminal ileum and appendix are identified in the right lower quadrant. Pelvis demonstrates normal bladder and age-appropriate uterus/adnexa. There is a small fat containing periumbilical hernia without associated acute inflammatory changes or fluid. No ascites. No free air. No intraperitoneal or retroperitoneal adenopathy. Abdominal aorta and vasculature appear normal. Musculoskeletal structures are intact and without acute osseous abnormality. IMPRESSION: 1. Patchy pulmonary opacities at the lung bases concerning for COVID-19 pulmonary disease and multifocal pneumonia. 2. Small fat containing periumbilical hernia without obvious acute inflammatory change. <Electronically signed by Enrique Washington > 08/04/21 [id number]
[2021-08-04] MEDS ORDERED: ACETAMINOPHEN 500 MG TAB PO ONE (14:05)
[2021-08-04] MEDS ORDERED: MORPHINE 4 MG/ML 1ML VIAL/SYRINGE (J2270) IV ONE (15:35)
[2021-08-04] MEDS ORDERED: ONDA4TAB6 PO (17:12)
[2021-08-04] MEDS ORDERED: PRED20TA PO (17:12)
[2021-08-04] MEDS ORDERED: VENTAER INH (17:12)
[2021-08-04] MEDS ORDERED: KETO10TAB PO (17:12)
[2021-08-04 18:24] VITALS: BP 120/86
== END 2021-08-04 18:28 | disposition home or self-care (01) ==
LOC: M ED 09:22
DX: J12.82 Pneumonia due to coronavirus disease 2019 (principal); U07.1 COVID-19; E03.9 Hypothyroidism, unspecified; Z79.899 Other long term (current) drug therapy
CPT/HCPCS: 71046; 74177; 80048; 80076; 81001; 83690; 84702; 85025; 96361; 96374; 96375; 99284; J1885; J2270; J2405; Q9967

== ENCOUNTER → 2022-04-02 | Outpatient (CLI) | payer OTHER ==
[~2022-04-02] MED LIST changes: +KETO10TAB PO; +ONDA4TAB6 PO; +PRED20TA PO; +VENTAER INH
[2022-04-02 13:28] LABS: CHOLESTEROL RISK RATIO 3.264 (<5); FREE T4 1.24 NG/DL (0.76-1.46); THYROID STIMULATING HORMONE 0.816 uIU/ML (0.358-3.740)
== END ==
LOC: M LAB 11:16
PROVIDERS: ATTEND Internal Medicine
DX: E03.9 Hypothyroidism, unspecified (principal); Z13.220 Encounter for screening for lipoid disorders

== ENCOUNTER → 2022-11-09 | Outpatient (REF) | payer OTHER | LOC: M LAB REF 16:14 | PROVIDERS: ATTEND Student in an Organized Health Care Education/Training Program | DX: J02.9 Acute pharyngitis, unspecified (principal) ==

== ENCOUNTER → 2022-12-21 | Outpatient (CLI) | payer OTHER ==
[2022-12-21 15:24] LABS: BASO % 0.5 % (0.0-1.0); EOS # 0.3 10^3/uL (0.0-0.5); EOS % 3.1 % (0.0-3.0); HEMATOCRIT 40.1 % (36.0-47.0); HEMOGLOBIN 12.7 g/dl (12.0-15.5); LYMPH # 2.2 10^3/uL (1.5-5.0); MEAN CORPUSCULAR HEMOGLOBIN 28.4 pg (27.0-33.0); MEAN CORPUSCULAR HGB CONC 31.7 g/dl (32.0-36.5); MEAN CORPUSCULAR VOLUME 89.7 fl (80.0-96.0); MONO # 0.6 10^3/uL (0.0-0.8); MONO % 7.2 % (2.0-8.0); NEUTROPHILS # 5.2 10^3/uL (1.5-8.5); NEUTROPHILS % 62.8 % (36.0-66.0); PLATELET COUNT, AUTOMATED 256 10^3/uL (150-450); RED BLOOD COUNT 4.47 10^6/uL (4.00-5.40); WHITE BLOOD COUNT 8.3 10^3/uL (4.0-10.0)
[2022-12-21 15:59] LABS: ALKALINE PHOSPHATASE 53 U/L (46-116); ALT/SGPT 20 U/L (7.0-40); AST/SGOT 16 U/L (<34); BILIRUBIN,TOTAL 0.5 MG/DL (0.3-1.2); BLOOD UREA NITROGEN 9 MG/DL (9-23); CALCIUM LEVEL 9.2 MG/DL (8.5-10.1); CARBON DIOXIDE LEVEL 24 MMOL/L (20-31); CHLORIDE LEVEL 106 MMOL/L (98-107); CHOLESTEROL LEVEL 173 MG/DL (<200); CHOLESTEROL RISK RATIO 2.94 (<5); CREATININE FOR GFR 0.63 MG/DL (0.55-1.30); FREE T4 1.71 NG/DL (0.89-1.76); GLOMERULAR FILTRATION RATE > 60.0 (>60); GLUCOSE, FASTING 76 MG/DL (60-100); HDL CHOLESTEROL 58.7 MG/DL (>40); LDL CHOLESTEROL 98.1 MG/DL (<100); NON-HDL-C 114.3 MG/DL; POTASSIUM SERUM 3.8 MMOL/L (3.5-5.1); SODIUM LEVEL 138 MMOL/L (136-145); THYROID STIMULATING HORMONE 0.061 uIU/ML (0.55-4.78); TOTAL 25(OH) VITAMIN D 37.1 NG/ML (20.0-100.0); TRIGLYCERIDES LEVEL 81 MG/DL (<150)
== END ==
LOC: M LAB 14:09
PROVIDERS: ATTEND Nurse Practitioner Adult Health
DX: E03.9 Hypothyroidism, unspecified (principal); E55.9 Vitamin D deficiency, unspecified; Z13.220 Encounter for screening for lipoid disorders; Z13.0 Encounter for screening for diseases of the blood and blood-forming organs and certain disorders involving the immune mechanism

== ENCOUNTER → 2023-09-20 | Outpatient (CLI) | payer OTHER ==
[2023-09-22 06:09] LABS: MUMPS VIRUS IgG ANTIBODY <9.0 AU/mL (Immune >10.9)
== END ==
LOC: M PLALAB 15:45
PROVIDERS: ATTEND Physician Assistant
DX: Z01.84 Encounter for antibody response examination (principal)

== ENCOUNTER → 2025-05-08 | Outpatient (REF) | payer OTHER ==
[~2025-05-08] MED LIST changes: +ONDA-282 PO; -ONDA4TAB6 PO
[2025-05-10 11:52] LABS: HPV APTIMA Not Detected (Not Detected)
== END ==
LOC: M PLALAB 13:08
PROVIDERS: ATTEND Physician Assistant
DX: Z12.4 Encounter for screening for malignant neoplasm of cervix (principal)